=== PATIENT | female | born 1950 | race Caucasian/White ===

== ENCOUNTER → 2016-11-28 | Outpatient (CLI) | payer MEDICARE, OTHER ==
--- NOTE | 2016-11-28 15:52 | REPMRS ---
Patient History The patient states she had a clinical breast exam in August 2016. Patient is postmenopausal. Family history of unknown cancer in father at age 50 or over and unknown cancer in sister at age 50 or over. Took hormonal contraceptives for 9 years. Took unspecified hormones for 10 years. Digital Mammo Screening Bilat: November 28, 2016 - Exam #: [id number] Bilateral CC and MLO view(s) were taken. Technologist: Maria A Payne, Technologist Prior study comparison: November 24, 2015, bilateral digital mammo screening bilat performed at [facility]. November 18, 2014, bilateral digital mammo screening bilat performed at [facility]. September 30, 2013, bilateral bilat screen digital mammo, performed at [facility] ([facility]). FINDINGS: There are scattered fibroglandular densities. There is a pacemaker power plant projecting over the right axilla on the MLO view. There is a moderate amount of residual fibroglandular tissue which is fairly symmetric. There is no interval development of dominant mass, architectural distortion, or clustered microcalcification typical of malignancy. There has been no change in the appearance of the mammogram from the prior studies. ASSESSMENT: BI-RADS/ACR category 1 mammogram. Negative. Recommendation Routine screening mammogram of both breasts in 1 year (for women over age 40). This mammogram was interpreted with the aid of an FDA-approved computer-aided dectection system. Electronically Signed By: Oliver Thacker MD 11/28/16 7046
== END ==
LOC: M RAD 12:04
PROVIDERS: ATTEND Obstetrics & Gynecology
DX: Z12.31 Encounter for screening mammogram for malignant neoplasm of breast (principal); Z78.0 Asymptomatic menopausal state; Z92.0 Personal history of contraception

== ENCOUNTER → 2017-01-23 | Outpatient (CLI) | payer MEDICARE, OTHER ==
[2017-01-23 10:45] LABS: MEAN CORPUSCULAR HEMOGLOBIN 30.6 pg (27.0-33.0); MEAN CORPUSCULAR HGB CONC 34.1 g/dl (32.0-36.5); MEAN CORPUSCULAR VOLUME 89.9 fl (80.0-96.0); RED CELL DISTRIBUTION WIDTH 12.9 % (11.5-14.5); WHITE BLOOD COUNT 5.2 K/mm3 (4.0-10.0)
[2017-01-23 10:45] LABS: INR 2.39
[2017-01-23 11:26] LABS: ALBUMIN 3.9 GM/DL (3.2-5.2); ALBUMIN/GLOBULIN RATIO 1.08 (1.00-1.93); BILIRUBIN,TOTAL 0.4 MG/DL (0.2-1.0); CALCIUM LEVEL 8.8 MG/DL (8.8-10.2); CREATININE FOR GFR 1.19 MG/DL (0.55-1.02); POTASSIUM SERUM 4.7 MEQ/L (3.5-5.1); TOTAL PROTEIN 7.5 GM/DL (6.4-8.2)
--- NOTE | 2017-01-23 11:40 | REP ---
Chest two views HISTORY: Hypertension Comparison: 03/04/2015 The lungs are clear. The cardiac silhouette is enlarged. The pulmonary vasculature is normal in appearance. The bony structure is intact. A cardiac pacemaker and heart valve are present. IMPRESSION: No acute disease. Signed by Jake Bassett MD 01/23/2017 11:31 A
--- NOTE | 2017-01-23 23:25 | ECGEPIP ---
Stationary ECG Study [facility] Test Date: 2017-01-23 Pat Name: KIAN MANZO Department: Room: - Gender: F Sales Team Manager: ELMER : [id number] Requested By: Sarah Bob Order Number: [id number] Reading MD: Jesus Pineda Measurements Intervals [place] Rate: 60 P: 56 AL: 243 QRS: 52 QRSD: 177 T: 35 QT: 464 QTc: 464 Interpretive Statements AV sequential paced rhythm. No prior ECG available for comparison at the time of interpretation. Electronically Signed On 01-23-2017 23:25:30 EDT by Jesus Pineda
== END ==
LOC: M LAB 09:57
PROVIDERS: ATTEND Family Medicine
DX: Z01.818 Encounter for other preprocedural examination (principal); Z79.899 Other long term (current) drug therapy

== ENCOUNTER → 2017-12-16 | Outpatient (CLI) | payer MEDICARE, OTHER | LOC: M RAD 13:58 | DX: Z12.31 Encounter for screening mammogram for malignant neoplasm of breast (principal); Z95.0 Presence of cardiac pacemaker | CPT/HCPCS: 77067 ==

== ENCOUNTER → 2018-07-25 | Outpatient (REF) | payer MEDICARE, OTHER ==
[2018-07-25 17:56] LABS: APPEARANCE, URINE HAZY (CLEAR); BACTERIA, URINE AUTO NEGATIVE (NEGATIVE); BILIRUBIN, URINE AUTO NEGATIVE (NEGATIVE); BLOOD, URINE BLOOD NEGATIVE (NEGATIVE); COLOR, URINE YELLOW (YELLOW); GLUCOSE, URINE (UA) AUTO NEGATIVE (NEGATIVE); KETONE, URINE AUTO NEGATIVE (NEGATIVE); LEUKOCYTE ESTERASE, URINE AUTO NEGATIVE (NEGATIVE); NITRITE, URINE AUTO NEGATIVE (NEGATIVE); PROTEIN, URINE AUTO NEGATIVE (NEGATIVE); RBC, URINE AUTO 13 /HPF (0-3); SQUAMOUS EPITHELIAL CELL UR AU 0 /HPF (0-6); UROBILINOGEN, URINE AUTO 0.2 mg/dL (0.0-2.0); WBC, URINE AUTO 1 /HPF (0-3)
== END ==
LOC: M LAB REF 17:24
PROVIDERS: ATTEND Obstetrics & Gynecology
DX: N39.41 Urge incontinence (principal)

== ENCOUNTER → 2018-07-30 | Outpatient (CLI) | payer MEDICARE, OTHER ==
[~2018-07-30] MED LIST: GASTROGRAFIN SOLUTION 30ML (Q9963) As Ordered ONE; ISOVUE-370 76% 100ML VIAL (Q9967) As Ordered ONE
--- NOTE | 2018-07-30 16:59 | REP ---
CT of the pelvis with IV and bowel contrast: Study includes immediate scanning of the pelvis after IV contrast, followed by delayed scanning. There are no comparisons. There is a hysterectomy. The vaginal cuff demonstrates no evidence of mass and is otherwise unremarkable. There are no adnexal masses. There is no ascites. There is no pelvic adenopathy. The bladder is incompletely distended but otherwise unremarkable. There are occasional diverticula in the sigmoid colon. There is no CT evidence of acute diverticulitis. There is no distension or obstruction of the visualized bowel loops. Impression: Essentially negative CT of the pelvis. There are no pelvic masses. Specifically no masses are identified in the vaginal cuff or in the adnexa. No adenopathy or ascites. Diverticulosis without diverticulitis. Electronically Signed by Jaquan Castellanos MD 07/30/2018 04:50 P
== END ==
LOC: M RAD 14:37
PROVIDERS: ATTEND Obstetrics & Gynecology
DX: D39.8 Neoplasm of uncertain behavior of other specified female genital organs (principal); N95.0 Postmenopausal bleeding; K57.30 Diverticulosis of large intestine without perforation or abscess without bleeding
CPT/HCPCS: 72193; Q9963; Q9967

== ENCOUNTER → 2018-12-29 | Outpatient (CLI) | payer MEDICARE, OTHER ==
--- NOTE | 2018-12-29 09:43 | REPMRS ---
Patient History The patient states she had a clinical breast exam in September 2018.Family history of unknown cancer at age 50 or over in father, unknown cancer at age 50 or over in sister. Brother has lung cancer. Took hormonal contraceptives for 9 years. Took unspecified hormones for 10 years. 3D TOMOSYNTHESIS WAS PERFORMED. The [facility] lifetime risk for breast cancer is 3.0%. Digital Mammo Screening Bilat: December 29, 2018 - Exam #: [id number] Bilateral CC and MLO view(s) were taken. Technologist: Lili Savage, Technologist Prior study comparison: December 16, 2017, bilateral digital mammo screening bilat performed at [facility]. November 28, 2016, bilateral digital mammo screening bilat performed at [facility]. FINDINGS: The breast tissue is heterogeneously dense. This may lower the sensitivity of mammography. There has been no change in the appearance of the mammogram from the prior studies. There is a moderate amount of residual fibroglandular tissue which is fairly symmetric. There is no interval development of dominant mass, areas of architectural distortion, or clustered microcalcification typical of malignancy. Assessment: BI-RADS/ACR category 1 mammogram. Negative Mammogram. Recommendation Routine screening mammogram in 1 year (for women over age 40). This mammogram was interpreted with the aid of an FDA-approved computer-aided dectection system. Electronically Signed By: Jaquan Levine MD 12/29/18 0942
== END ==
LOC: M RAD 08:26
PROVIDERS: ATTEND Obstetrics & Gynecology
DX: Z12.31 Encounter for screening mammogram for malignant neoplasm of breast (principal); Z80.1 Family history of malignant neoplasm of trachea, bronchus and lung

== ENCOUNTER → 2019-07-06 | Outpatient (CLI) | payer MEDICARE, OTHER ==
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
== END ==
LOC: M WUC 11:14
PROVIDERS: ATTEND Physician Assistant
DX: M17.12 Unilateral primary osteoarthritis, left knee (principal)

== ENCOUNTER → 2020-01-08 | Outpatient (CLI) | payer MEDICARE, OTHER ==
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
== END ==
LOC: M WHC 11:01
PROVIDERS: ATTEND Obstetrics & Gynecology
DX: Z12.31 Encounter for screening mammogram for malignant neoplasm of breast (principal); Z80.9 Family history of malignant neoplasm, unspecified

== ENCOUNTER → 2021-03-03 | Outpatient (CLI) | payer MEDICARE, OTHER ==
--- NOTE | 2021-03-03 10:42 | REPMRS ---
Patient History The patient states she had a clinical breast exam in November 2020. Family history of unknown cancer at age 50 or over in father, unknown cancer at age 50 or over in sister. Took hormonal contraceptives for 9 years. Took unspecified hormones for 10 years. Patient states no breast complaints today. Patient has signed MRS History Sheet. Digital Woman Screen Mammo: March 03, 2021 - Exam #: [id number] Bilateral CC and MLO view(s) were taken. Technologist: Tyesha Broderick, Technologist Prior study comparison: January 08, 2020, bilateral digital woman screen mammo performed at [facility]. December 29, 2018, bilateral digital mammo screening bilat, performed at [facility]. December 16, 2017, bilateral digital mammo screening bilat, performed at [facility]. FINDINGS: There are scattered fibroglandular densities. The [employer] volumetric breast density category is:B. There has been no change in the appearance of the mammogram from the prior studies. There is a mild amount of scattered fibroglandular density which is fairly symmetric. There is no interval development of dominant mass, architectural distortion, or grouped microcalcification suggestive of malignancy. 3-D tomosynthesis shows no additional findings. Assessment: BI-RADS/ACR category 1 mammogram. Negative Mammogram. Recommendation Routine screening mammogram of both breasts in 1 year (for women over age 40). This patient's [facility] Lifetime Breast Cancer Risk is estimated at 3.7 %. This mammogram was interpreted with the aid of an FDA-approved computer-aided dectection system. Electronically Signed By: Oliver Thacker MD 03/03/21 1669
== END ==
LOC: M WHC 09:22
PROVIDERS: ATTEND Obstetrics & Gynecology
DX: Z12.31 Encounter for screening mammogram for malignant neoplasm of breast (principal); Z80.8 Family history of malignant neoplasm of other organs or systems

== ENCOUNTER → 2021-10-26 | Outpatient (CLI) | payer MEDICARE, OTHER ==
[2021-10-26 13:38] LABS: HEMATOCRIT 37.4 % (36.0-47.0); HEMOGLOBIN 12.1 g/dl (12.0-15.5); MEAN CORPUSCULAR HEMOGLOBIN 29.8 pg (27.0-33.0); MEAN CORPUSCULAR HGB CONC 32.4 g/dl (32.0-36.5); MEAN CORPUSCULAR VOLUME 92.1 fl (80.0-96.0); PLATELET COUNT, AUTOMATED 215 10^3/uL (150-450); RED BLOOD COUNT 4.06 10^6/uL (4.00-5.40); WHITE BLOOD COUNT 8.2 10^3/uL (4.0-10.0)
[2021-10-26 13:51] LABS: INR 2.24; PROTHROMBIN TIME 25.2 SECONDS (12.7-14.5)
[2021-10-26 14:15] LABS: ALBUMIN 3.9 GM/DL (3.2-5.2); BILIRUBIN,TOTAL 0.4 MG/DL (0.2-1.0); CALCIUM LEVEL 10.1 MG/DL (8.8-10.2); CHOLESTEROL RISK RATIO 2.5 (<5); CREATININE FOR GFR 1.27 MG/DL (0.55-1.30); GLOMERULAR FILTRATION RATE 43.9 (>39); POTASSIUM SERUM 4.4 MEQ/L (3.5-5.1); THYROID STIMULATING HORMONE 1.48 uIU/ML (0.358-3.740); TOTAL PROTEIN 8.1 GM/DL (6.4-8.2)
== END ==
LOC: M RAD 12:23
PROVIDERS: ATTEND Family Medicine
DX: R91.8 Other nonspecific abnormal finding of lung field (principal); I10 Essential (primary) hypertension; Z95.0 Presence of cardiac pacemaker

== ENCOUNTER → 2021-11-02 | Outpatient (CLI) | payer MEDICARE, OTHER | LOC: M RAD 11:32 | PROVIDERS: ATTEND Family Medicine | DX: R91.8 Other nonspecific abnormal finding of lung field (principal) ==

== ENCOUNTER → 2021-12-06 | Outpatient (CLI) | payer MEDICARE, OTHER ==
[2021-12-06 18:00] LABS: HEMATOCRIT 37.2 % (36.0-47.0); MEAN CORPUSCULAR HEMOGLOBIN 30.6 pg (27.0-33.0); MEAN CORPUSCULAR HGB CONC 32.3 g/dl (32.0-36.5); MEAN CORPUSCULAR VOLUME 94.9 fl (80.0-96.0); PLATELET COUNT, AUTOMATED 266 10^3/uL (150-450); RED BLOOD COUNT 3.92 10^6/uL (4.00-5.40); WHITE BLOOD COUNT 9.6 10^3/uL (4.0-10.0)
[2021-12-06 19:46] LABS: BILIRUBIN,TOTAL 0.4 MG/DL (0.2-1.0); CALCIUM LEVEL 9.7 MG/DL (8.8-10.2); CREATININE FOR GFR 1.55 MG/DL (0.55-1.30); GLOMERULAR FILTRATION RATE 34.9 (>39); TOTAL PROTEIN 7.4 GM/DL (6.4-8.2)
== END ==
LOC: M PLALAB 15:21
PROVIDERS: ATTEND Internal Medicine Cardiovascular Disease
DX: I44.2 Atrioventricular block, complete (principal)

== ENCOUNTER → 2021-12-06 | Outpatient (CLI) | payer MEDICARE, OTHER | LOC: M PLAIMG 09:56 | PROVIDERS: ATTEND Internal Medicine Pulmonary Disease | DX: R91.8 Other nonspecific abnormal finding of lung field (principal); I44.2 Atrioventricular block, complete ==

== ENCOUNTER → 2021-12-14 | Outpatient (CLI) | payer MEDICARE, OTHER | LOC: M LABSMTC 09:09 | PROVIDERS: ATTEND Internal Medicine Cardiovascular Disease | DX: Z01.818 Encounter for other preprocedural examination (principal); Z11.52 Encounter for screening for COVID-19 ==

== ENCOUNTER → 2022-01-22 | Outpatient (CLI) | payer MEDICARE, OTHER ==
[~2022-01-22] MED LIST changes: +AMLO1TAB24 PO; +ASPI81TA26 PO; +ATOR1TAB21 PO; +B-12100010 PO; +CALC600T60 PO; +COLA100C5 PO; +DOFE125C PO; +ENOX80IN3 SQ; -GASTROGRAFIN SOLUTION 30ML (Q9963) As Ordered ONE; -ISOVUE-370 76% 100ML VIAL (Q9967) As Ordered ONE; +LISI40TA4 PO; +MAGN400T2 PO; +METO1TAB7 PO; +PYRI25TA2 PO; +SPIR-10 PO; +VITA250T26 PO; +VITMTA PO; +WARF-23 PO
== END ==
LOC: M PLARAD 10:01
PROVIDERS: ATTEND Internal Medicine Pulmonary Disease
DX: R91.8 Other nonspecific abnormal finding of lung field (principal)
CPT/HCPCS: 78815; A9552

== ENCOUNTER 2022-02-12 11:44 | Inpatient (IN) | payer MEDICARE, OTHER ==
[~2022-02-12] VITALS: Ht 154.9 cm; Wt 77.2 kg
[2022-02-12] MEDS ORDERED: ACETAMINOPHEN TAB 650MG DOSE (2X325MG) PO PRN (12:50)
[2022-02-12] MEDS ORDERED: MOM 30ML SUSPENSION UDC PO PRN (12:50)
[2022-02-12 16:13] VITALS: BP 140/61
[2022-02-12] MEDS ORDERED: HEPARIN SOD (PORCINE) 5000UNITS/ML 1ML VIAL/SYRINGE IV PRN (16:15)
[2022-02-12] MEDS ORDERED: HEPARIN SOD (PORCINE) 5000UNITS/ML 1ML VIAL/SYRINGE IV ONE (16:15)
[2022-02-12 16:34] LABS: HEMATOCRIT 35.3 % (36.0-47.0); HEMOGLOBIN 11.5 g/dl (12.0-15.5); MEAN CORPUSCULAR HEMOGLOBIN 30.1 pg (27.0-33.0); MEAN CORPUSCULAR HGB CONC 32.6 g/dl (32.0-36.5); MEAN CORPUSCULAR VOLUME 92.4 fl (80.0-96.0); PLATELET COUNT, AUTOMATED 209 10^3/uL (150-450); RED BLOOD COUNT 3.82 10^6/uL (4.00-5.40); WHITE BLOOD COUNT 7.5 10^3/uL (4.0-10.0)
[2022-02-12 16:50] LABS: INR 1.11; PROTHROMBIN TIME 14.7 SECONDS (12.7-14.5)
[2022-02-12 17:07] LABS: ALBUMIN 4.3 GM/DL (3.2-5.2); BILIRUBIN,TOTAL 0.5 MG/DL (0.2-1.0); CALCIUM LEVEL 9.4 MG/DL (8.8-10.2); CREATININE FOR GFR 1.49 MG/DL (0.55-1.30); GLOMERULAR FILTRATION RATE 36.5 (>39); POTASSIUM SERUM 4.5 MEQ/L (3.5-5.1); TOTAL PROTEIN 7.6 GM/DL (6.4-8.2)
[2022-02-12] MEDS ORDERED: ATOR1TAB21 PO (17:08)
[2022-02-12] MEDS ORDERED: ASPI81TA26 PO (17:08)
[2022-02-12] MEDS ORDERED: VITMTA PO (17:08)
[2022-02-12] MEDS ORDERED: MAGN400T2 PO (17:08)
[2022-02-12] MEDS ORDERED: AMLO1TAB24 PO ×2 (17:08)
[2022-02-12] MEDS ORDERED: METO1TAB7 PO (17:08)
[2022-02-12] MEDS ORDERED: WARF-23 PO (17:08)
[2022-02-12] MEDS ORDERED: ENOX80IN3 SQ (17:08)
[2022-02-12] MEDS ORDERED: CALC600T60 PO (17:08)
[2022-02-12] MEDS ORDERED: PYRI25TA2 PO (17:08)
[2022-02-12] MEDS ORDERED: DOFE125C PO (17:08)
[2022-02-12] MEDS ORDERED: LISI40TA4 PO (17:08)
[2022-02-12] MEDS ORDERED: VITA250T26 PO (17:08)
[2022-02-12] MEDS ORDERED: B-12100010 PO (17:08)
[2022-02-12] MEDS ORDERED: SPIR-10 PO (17:08)
[2022-02-12] MEDS ORDERED: HOME MED LIST COMPLETE! XX SCH (17:10)
[2022-02-12] MEDS: HEPARIN DRIP 25,000 UNITS in IV 1 EA IV SCH (17:56)
[2022-02-12 19:36] VITALS: BP 132/63
[2022-02-12] MEDS: DOCUSATE SODIUM 100MG CAPSULE PO SCH (20:10)
[2022-02-12] MEDS: ATORVASTATIN 20 MG TAB PO SCH (20:10)
[2022-02-12] MEDS: DOFETILIDE 125 MCG PO SCH (20:11)
[2022-02-12] MEDS: METOPROLOL SUCC (TopROL XL) 50MG **XL** TAB PO SCH (20:27)
[2022-02-12] MEDS ORDERED: METOPROLOL SUCC (TopROL XL) 50MG **XL** TAB PO ONE (20:40)
[2022-02-12 22:53] LABS: INR 1.12; PROTHROMBIN TIME 14.8 SECONDS (12.7-14.5)
[2022-02-12 23:58] VITALS: BP 113/54
[2022-02-13 03:52] VITALS: BP 114/89
[2022-02-13 05:46] LABS: ALBUMIN 3.8 GM/DL (3.2-5.2); BILIRUBIN,TOTAL 0.5 MG/DL (0.2-1.0); CREATININE FOR GFR 1.32 MG/DL (0.55-1.30); POTASSIUM SERUM 3.9 MEQ/L (3.5-5.1)
[2022-02-13 07:50] VITALS: BP 168/80
[2022-02-13 08:00] VITALS: BP 146/76
[2022-02-13] MEDS ORDERED: LIDOCAINE 1% MDV 20ML VIAL As Ordered ONE (08:04)
[2022-02-13 08:14] LABS: HEMATOCRIT 33.4 % (36.0-47.0); HEMOGLOBIN 10.6 g/dl (12.0-15.5); MEAN CORPUSCULAR HEMOGLOBIN 29.9 pg (27.0-33.0); MEAN CORPUSCULAR HGB CONC 31.7 g/dl (32.0-36.5); MEAN CORPUSCULAR VOLUME 94.4 fl (80.0-96.0); PLATELET COUNT, AUTOMATED 178 10^3/uL (150-450); RED BLOOD COUNT 3.54 10^6/uL (4.00-5.40); WHITE BLOOD COUNT 5.5 10^3/uL (4.0-10.0)
[2022-02-13] MEDS: SPIRONOLACTONE 12.5MG PER 1/2 TABLET PO SCH (08:23)
[2022-02-13] MEDS: DOCUSATE SODIUM 100MG CAPSULE PO SCH ×2 (08:23→20:45)
[2022-02-13] MEDS: amLODIPine 5 MG TAB PO SCH (08:24)
[2022-02-13] MEDS: DOFETILIDE 125 MCG PO SCH ×2 (08:24→20:46)
[2022-02-13] MEDS: MAGNESIUM OXIDE 400MG TAB (MAG-OX) PO SCH ×2 (08:24→20:46)
[2022-02-13] MEDS ORDERED: METOPROLOL SUCC (TopROL XL) 50MG **XL** TAB PO SCH (09:00)
[2022-02-13] MEDS: lisinopriL 40MG TAB PO SCH (10:19)
[2022-02-13 13:00] VITALS: BP 138/80
[2022-02-13 15:51] LABS: HEMATOCRIT 35.5 % (36.0-47.0); HEMOGLOBIN 11.5 g/dl (12.0-15.5); MEAN CORPUSCULAR HGB CONC 32.4 g/dl (32.0-36.5); MEAN CORPUSCULAR VOLUME 92.7 fl (80.0-96.0); PLATELET COUNT, AUTOMATED 185 10^3/uL (150-450); RED BLOOD COUNT 3.83 10^6/uL (4.00-5.40); WHITE BLOOD COUNT 7.1 10^3/uL (4.0-10.0)
[2022-02-13 16:00] VITALS: BP 125/74
[2022-02-13 16:10] LABS: INR 0.98; PARTIAL THROMBOPLASTIN TIME 37.7 SECONDS (25.9-37.0); PROTHROMBIN TIME 13.4 SECONDS (12.7-14.5)
[2022-02-13] MEDS ORDERED: WARFARIN SOD 7.5MG TAB PO ONE (17:00)
[2022-02-13] MEDS: HEPARIN DRIP 25,000 UNITS in IV 1 EA IV SCH (17:38)
[2022-02-13 20:00] VITALS: BP 118/56
[2022-02-13] MEDS: ATORVASTATIN 20 MG TAB PO SCH (20:46)
[2022-02-13] MEDS: METOPROLOL SUCC (TopROL XL) 50MG **XL** TAB PO SCH (20:46)
[2022-02-14] VITALS: BP 125/60
[2022-02-14 00:34] LABS: INR 0.99; PROTHROMBIN TIME 13.5 SECONDS (12.7-14.5)
[2022-02-14 00:35] LABS: PARTIAL THROMBOPLASTIN TIME 63.9 SECONDS (25.9-37.0)
[2022-02-14 04:00] VITALS: BP 120/60
[2022-02-14 06:38] LABS: HEMATOCRIT 33.2 % (36.0-47.0); HEMOGLOBIN 10.8 g/dl (12.0-15.5); MEAN CORPUSCULAR HEMOGLOBIN 30.2 pg (27.0-33.0); MEAN CORPUSCULAR HGB CONC 32.5 g/dl (32.0-36.5); MEAN CORPUSCULAR VOLUME 92.7 fl (80.0-96.0); PLATELET COUNT, AUTOMATED 172 10^3/uL (150-450); RED BLOOD COUNT 3.58 10^6/uL (4.00-5.40); WHITE BLOOD COUNT 6.7 10^3/uL (4.0-10.0)
[2022-02-14 06:49] LABS: INR 1.01; PROTHROMBIN TIME 13.7 SECONDS (12.7-14.5)
[2022-02-14 06:51] LABS: PARTIAL THROMBOPLASTIN TIME 85.9 SECONDS (25.9-37.0)
[2022-02-14 08:00] VITALS: BP 112/55
[2022-02-14] MEDS: amLODIPine 5 MG TAB PO SCH (08:15)
[2022-02-14] MEDS: SPIRONOLACTONE 12.5MG PER 1/2 TABLET PO SCH (08:15)
[2022-02-14] MEDS: DOCUSATE SODIUM 100MG CAPSULE PO SCH ×2 (08:15→20:27)
[2022-02-14] MEDS: MAGNESIUM OXIDE 400MG TAB (MAG-OX) PO SCH ×2 (08:15→20:26)
[2022-02-14] MEDS: lisinopriL 40MG TAB PO SCH (08:15)
[2022-02-14 08:24] LABS: ALBUMIN 3.7 GM/DL (3.2-5.2); BILIRUBIN,TOTAL 0.4 MG/DL (0.2-1.0); CALCIUM LEVEL 9.3 MG/DL (8.8-10.2); CREATININE FOR GFR 1.24 MG/DL (0.55-1.30); GLOMERULAR FILTRATION RATE 45.1 (>39); TOTAL PROTEIN 6.9 GM/DL (6.4-8.2)
[2022-02-14] MEDS: DOFETILIDE 125 MCG PO SCH ×2 (08:34→21:12)
[2022-02-14 12:00] VITALS: BP 122/59
[2022-02-14 16:00] VITALS: BP 128/60
[2022-02-14] MEDS ORDERED: WARFARIN SOD 7.5MG TAB PO ONE (17:00)
[2022-02-14 19:39] VITALS: BP 122/60
[2022-02-14] MEDS: METOPROLOL SUCC (TopROL XL) 50MG **XL** TAB PO SCH (20:28)
[2022-02-14] MEDS: ATORVASTATIN 20 MG TAB PO SCH (20:28)
[2022-02-14] MEDS: HEPARIN DRIP 25,000 UNITS in IV 1 EA IV SCH (21:16)
[2022-02-15] VITALS (7 sets, daily range): BP systolic 97–138; BP diastolic 52–63
[2022-02-15 06:10] LABS: HEMATOCRIT 33.4 % (36.0-47.0); HEMOGLOBIN 10.8 g/dl (12.0-15.5); MEAN CORPUSCULAR HEMOGLOBIN 29.8 pg (27.0-33.0); MEAN CORPUSCULAR HGB CONC 32.3 g/dl (32.0-36.5); PLATELET COUNT, AUTOMATED 180 10^3/uL (150-450); RED BLOOD COUNT 3.63 10^6/uL (4.00-5.40); WHITE BLOOD COUNT 6.8 10^3/uL (4.0-10.0)
[2022-02-15 06:30] LABS: INR 1.17; PROTHROMBIN TIME 15.3 SECONDS (12.7-14.5)
[2022-02-15 06:32] LABS: PARTIAL THROMBOPLASTIN TIME 109.7 SECONDS (25.9-37.0)
[2022-02-15 06:40] LABS: ALBUMIN 3.6 GM/DL (3.2-5.2); BILIRUBIN,TOTAL 0.4 MG/DL (0.2-1.0); CALCIUM LEVEL 9.2 MG/DL (8.8-10.2); CREATININE FOR GFR 1.23 MG/DL (0.55-1.30); GLOMERULAR FILTRATION RATE 45.6 (>39); TOTAL PROTEIN 7.4 GM/DL (6.4-8.2)
[2022-02-15] MEDS: DOCUSATE SODIUM 100MG CAPSULE PO SCH ×2 (09:02→20:21)
[2022-02-15] MEDS: MAGNESIUM OXIDE 400MG TAB (MAG-OX) PO SCH ×2 (09:02→20:22)
[2022-02-15] MEDS: DOFETILIDE 125 MCG PO SCH ×2 (09:03→20:22)
[2022-02-15] MEDS: SPIRONOLACTONE 12.5MG PER 1/2 TABLET PO SCH (10:50)
[2022-02-15] MEDS: lisinopriL 40MG TAB PO SCH (10:55)
[2022-02-15] MEDS: amLODIPine 5 MG TAB PO SCH (11:02)
[2022-02-15] MEDS ORDERED: WARFARIN SOD 5MG TAB PO SCH (17:00)
[2022-02-15] MEDS: METOPROLOL SUCC (TopROL XL) 50MG **XL** TAB PO SCH (20:22)
[2022-02-15] MEDS: ATORVASTATIN 20 MG TAB PO SCH (20:22)
[2022-02-16 00:15] VITALS: BP 106/59
[2022-02-16] MEDS: HEPARIN DRIP 25,000 UNITS in IV 1 EA IV SCH (01:36)
[2022-02-16 04:00] VITALS: BP 139/63
[2022-02-16 07:14] LABS: HEMATOCRIT 33.3 % (36.0-47.0); HEMOGLOBIN 10.9 g/dl (12.0-15.5); MEAN CORPUSCULAR HEMOGLOBIN 30.1 pg (27.0-33.0); MEAN CORPUSCULAR HGB CONC 32.7 g/dl (32.0-36.5); PLATELET COUNT, AUTOMATED 187 10^3/uL (150-450); RED BLOOD COUNT 3.62 10^6/uL (4.00-5.40); WHITE BLOOD COUNT 6.4 10^3/uL (4.0-10.0)
[2022-02-16 07:25] LABS: INR 1.34
[2022-02-16 07:43] LABS: PARTIAL THROMBOPLASTIN TIME 126.4 SECONDS (25.9-37.0)
[2022-02-16 07:47] LABS: ALBUMIN 3.7 GM/DL (3.2-5.2); BILIRUBIN,TOTAL 0.4 MG/DL (0.2-1.0); CREATININE FOR GFR 1.1 MG/DL (0.55-1.30); GLOMERULAR FILTRATION RATE 51.8 (>39); POTASSIUM SERUM 4.2 MEQ/L (3.5-5.1)
[2022-02-16 08:00] VITALS: BP 115/59
[2022-02-16] MEDS: DOCUSATE SODIUM 100MG CAPSULE PO SCH ×2 (09:49→20:34)
[2022-02-16] MEDS: MAGNESIUM OXIDE 400MG TAB (MAG-OX) PO SCH ×2 (09:50→20:34)
[2022-02-16] MEDS: SPIRONOLACTONE 12.5MG PER 1/2 TABLET PO SCH (09:50)
[2022-02-16] MEDS: lisinopriL 40MG TAB PO SCH (09:50)
[2022-02-16] MEDS: amLODIPine 5 MG TAB PO SCH (09:55)
[2022-02-16] MEDS: DOFETILIDE 125 MCG PO SCH ×2 (09:56→20:34)
[2022-02-16 12:00] VITALS: BP 132/60
[2022-02-16 15:27] VITALS: BP 133/70
[2022-02-16] MEDS ORDERED: WARFARIN SOD 7.5MG TAB PO ONE (17:00)
[2022-02-16 20:00] VITALS: BP 122/57
[2022-02-16] MEDS: METOPROLOL SUCC (TopROL XL) 50MG **XL** TAB PO SCH (20:33)
[2022-02-16] MEDS: ATORVASTATIN 20 MG TAB PO SCH (20:34)
[2022-02-16] MEDS: LIDOCAINE 5% (LIDODERM) PATCH TD SCH (22:04)
[2022-02-17] VITALS: BP 100/48
[2022-02-17 03:23] LABS: HEMATOCRIT 33.1 % (36.0-47.0); HEMOGLOBIN 10.9 g/dl (12.0-15.5); MEAN CORPUSCULAR HEMOGLOBIN 29.9 pg (27.0-33.0); MEAN CORPUSCULAR HGB CONC 32.9 g/dl (32.0-36.5); MEAN CORPUSCULAR VOLUME 90.9 fl (80.0-96.0); PLATELET COUNT, AUTOMATED 164 10^3/uL (150-450); RED BLOOD COUNT 3.64 10^6/uL (4.00-5.40); WHITE BLOOD COUNT 8.4 10^3/uL (4.0-10.0)
[2022-02-17 03:57] LABS: INR 1.52; PROTHROMBIN TIME 18.7 SECONDS (12.7-14.5)
[2022-02-17 03:59] LABS: PARTIAL THROMBOPLASTIN TIME 76.2 SECONDS (25.9-37.0)
[2022-02-17 04:00] VITALS: BP 106/57
[2022-02-17 04:10] LABS: ALBUMIN 3.4 GM/DL (3.2-5.2); BILIRUBIN,TOTAL 0.4 MG/DL (0.2-1.0); CALCIUM LEVEL 9.1 MG/DL (8.8-10.2); CREATININE FOR GFR 1.59 MG/DL (0.55-1.30); GLOMERULAR FILTRATION RATE 33.9 (>39); POTASSIUM SERUM 3.8 MEQ/L (3.5-5.1)
[2022-02-17 08:00] VITALS: BP 107/53
[2022-02-17] MEDS: DOCUSATE SODIUM 100MG CAPSULE PO SCH ×2 (08:45→20:06)
[2022-02-17] MEDS: MAGNESIUM OXIDE 400MG TAB (MAG-OX) PO SCH ×2 (08:45→20:07)
[2022-02-17] MEDS: amLODIPine 5 MG TAB PO SCH (08:46)
[2022-02-17] MEDS: DOFETILIDE 125 MCG PO SCH ×2 (08:50→20:07)
[2022-02-17] MEDS: **NOTE PATIENT COMMENT** MISC XX SCH (08:51)
[2022-02-17] MEDS: NS 1,000 ML IV SCH ×2 (09:33→20:45)
[2022-02-17 12:00] VITALS: BP 102/57
[2022-02-17 16:00] VITALS: BP 103/53
[2022-02-17] MEDS ORDERED: WARFARIN SOD 7.5MG TAB PO ONE (17:00)
[2022-02-17] MEDS: HEPARIN DRIP 25,000 UNITS in IV 1 EA IV SCH (19:13)
[2022-02-17 20:00] VITALS: BP 103/53
[2022-02-17] MEDS: METOPROLOL SUCC (TopROL XL) 50MG **XL** TAB PO SCH (20:00)
[2022-02-17] MEDS: LIDOCAINE 5% (LIDODERM) PATCH TD SCH (20:06)
[2022-02-17] MEDS: ATORVASTATIN 20 MG TAB PO SCH (20:06)
[2022-02-18] VITALS: BP 103/52
[2022-02-18 04:00] VITALS: BP 102/51
[2022-02-18 06:06] LABS: HEMATOCRIT 31.2 % (36.0-47.0); MEAN CORPUSCULAR HEMOGLOBIN 29.6 pg (27.0-33.0); MEAN CORPUSCULAR HGB CONC 32.1 g/dl (32.0-36.5); MEAN CORPUSCULAR VOLUME 92.3 fl (80.0-96.0); PLATELET COUNT, AUTOMATED 160 10^3/uL (150-450); RED BLOOD COUNT 3.38 10^6/uL (4.00-5.40); WHITE BLOOD COUNT 5.4 10^3/uL (4.0-10.0)
[2022-02-18 06:50] LABS: INR 1.8; PROTHROMBIN TIME 21.3 SECONDS (12.7-14.5)
[2022-02-18 06:58] LABS: ALBUMIN 3.3 GM/DL (3.2-5.2); BILIRUBIN,TOTAL 0.3 MG/DL (0.2-1.0); CALCIUM LEVEL 8.4 MG/DL (8.8-10.2); CREATININE FOR GFR 1.16 MG/DL (0.55-1.30); GLOMERULAR FILTRATION RATE 48.8 (>39); POTASSIUM SERUM 4.1 MEQ/L (3.5-5.1); TOTAL PROTEIN 6.2 GM/DL (6.4-8.2)
[2022-02-18 07:49] LABS: PARTIAL THROMBOPLASTIN TIME 175.6 SECONDS (25.9-37.0)
[2022-02-18 07:53] VITALS: BP 110/56
[2022-02-18] MEDS: MAGNESIUM OXIDE 400MG TAB (MAG-OX) PO SCH ×2 (08:22→20:39)
[2022-02-18] MEDS: amLODIPine 5 MG TAB PO SCH (08:22)
[2022-02-18] MEDS: DOCUSATE SODIUM 100MG CAPSULE PO SCH ×2 (08:22→20:38)
[2022-02-18] MEDS: DOFETILIDE 125 MCG PO SCH ×2 (08:23→20:39)
[2022-02-18] MEDS: **NOTE PATIENT COMMENT** MISC XX SCH (08:24)
[2022-02-18] MEDS ORDERED: COLA100C5 PO (11:25)
[2022-02-18] MEDS ORDERED: METO1TAB7 PO (11:25)
[2022-02-18 12:00] VITALS: BP 124/59
[2022-02-18 16:00] VITALS: BP 127/62
[2022-02-18] MEDS ORDERED: WARFARIN SOD 5MG TAB PO ONE (17:00)
[2022-02-18 20:00] VITALS: BP 125/63
[2022-02-18] MEDS: ATORVASTATIN 20 MG TAB PO SCH (20:38)
[2022-02-18] MEDS: METOPROLOL SUCC (TopROL XL) 50MG **XL** TAB PO SCH (20:39)
[2022-02-18] MEDS: LIDOCAINE 5% (LIDODERM) PATCH TD SCH (20:39)
[2022-02-19] VITALS: BP 112/51
[2022-02-19 04:00] VITALS: BP 97/55
[2022-02-19 07:03] LABS: HEMATOCRIT 30.5 % (36.0-47.0); HEMOGLOBIN 9.9 g/dl (12.0-15.5); MEAN CORPUSCULAR HEMOGLOBIN 29.6 pg (27.0-33.0); MEAN CORPUSCULAR HGB CONC 32.5 g/dl (32.0-36.5); MEAN CORPUSCULAR VOLUME 91.3 fl (80.0-96.0); PLATELET COUNT, AUTOMATED 173 10^3/uL (150-450); RED BLOOD COUNT 3.34 10^6/uL (4.00-5.40); WHITE BLOOD COUNT 7.6 10^3/uL (4.0-10.0)
[2022-02-19 07:22] LABS: INR 1.9; PROTHROMBIN TIME 22.2 SECONDS (12.7-14.5)
[2022-02-19 07:24] LABS: PARTIAL THROMBOPLASTIN TIME 70.3 SECONDS (25.9-37.0)
[2022-02-19 07:53] LABS: CALCIUM LEVEL 8.9 MG/DL (8.8-10.2); CREATININE FOR GFR 1.17 MG/DL (0.55-1.30); GLOMERULAR FILTRATION RATE 48.3 (>39); POTASSIUM SERUM 4.6 MEQ/L (3.5-5.1)
[2022-02-19 07:54] LABS: ALBUMIN 3.5 GM/DL (3.2-5.2); BILIRUBIN,TOTAL 0.4 MG/DL (0.2-1.0); TOTAL PROTEIN 6.7 GM/DL (6.4-8.2)
[2022-02-19 07:56] VITALS: BP_SYST 100; BP_SYST 104; BP_DIAS 60; BP_DIAS 73
[2022-02-19] MEDS: MAGNESIUM OXIDE 400MG TAB (MAG-OX) PO SCH (08:01)
[2022-02-19] MEDS: DOCUSATE SODIUM 100MG CAPSULE PO SCH (08:01)
[2022-02-19 08:02] VITALS: BP 104/60
[2022-02-19] MEDS: **NOTE PATIENT COMMENT** MISC XX SCH (08:02)
[2022-02-19] MEDS: amLODIPine 5 MG TAB PO SCH (08:02)
[2022-02-19] MEDS: DOFETILIDE 125 MCG PO SCH (08:02)
[2022-02-19] MEDS ORDERED: ENOX80IN3 SQ (08:32)
== END 2022-02-19 10:24 | disposition home or self-care (01) | DRG 181 ==
LOC: M PCU 15:14
PROVIDERS: ADMIT Internal Medicine Pulmonary Disease; ATTEND Internal Medicine
PROC: BB24ZZZ Computerized Tomography (CT Scan) of Bilateral Lungs (ICD-10-PCS; 2022-02-13)
PROC: 0BBG3ZX Excision of Left Upper Lung Lobe, Percutaneous Approach, Diagnostic (ICD-10-PCS; principal; 2022-02-13 09:00)
DX: C34.12 Malignant neoplasm of upper lobe, left bronchus or lung (principal); J95.811 Postprocedural pneumothorax; I50.32 Chronic diastolic (congestive) heart failure; N17.9 Acute kidney failure, unspecified; I13.0 Hypertensive heart and chronic kidney disease with heart failure and stage 1 through stage 4 chronic kidney disease, or unspecified chronic kidney disease; E87.1 Hypo-osmolality and hyponatremia; I49.5 Sick sinus syndrome; E78.5 Hyperlipidemia, unspecified; I48.0 Paroxysmal atrial fibrillation; E55.9 Vitamin D deficiency, unspecified; R31.9 Hematuria, unspecified; N18.9 Chronic kidney disease, unspecified; Z79.01 Long term (current) use of anticoagulants; Z95.2 Presence of prosthetic heart valve; Z95.1 Presence of aortocoronary bypass graft; Z79.899 Other long term (current) drug therapy; Z51.81 Encounter for therapeutic drug level monitoring

== ENCOUNTER → 2022-03-02 | Outpatient (CLI) | payer MEDICARE, OTHER | LOC: M ONCR 08:48 | PROVIDERS: ATTEND General Practice | DX: C34.12 Malignant neoplasm of upper lobe, left bronchus or lung (principal); E78.5 Hyperlipidemia, unspecified; I12.9 Hypertensive chronic kidney disease with stage 1 through stage 4 chronic kidney disease, or unspecified chronic kidney disease; I48.91 Unspecified atrial fibrillation; Z79.01 Long term (current) use of anticoagulants; Z79.82 Long term (current) use of aspirin; Z79.899 Other long term (current) drug therapy; Z80.1 Family history of malignant neoplasm of trachea, bronchus and lung; Z80.6 Family history of leukemia; Z87.891 Personal history of nicotine dependence; Z95.2 Presence of prosthetic heart valve; Z95.0 Presence of cardiac pacemaker ==

== ENCOUNTER 2022-03-08 09:20 | Outpatient (RCR) | payer MEDICARE, OTHER ==
[~2022-03-08 09:20] MED LIST changes: +PROA1AER2 INH
[2022-03-22] MEDS ORDERED: PROC10TA5 PO (16:09)
[2022-03-22] MEDS ORDERED: ONDA-84 PO (16:09)
== END 2022-03-26 ==
LOC: M ONCR 09:20
PROVIDERS: ATTEND General Practice
DX: C34.12 Malignant neoplasm of upper lobe, left bronchus or lung (principal)

== ENCOUNTER → 2022-03-27 | Outpatient (CLI) | payer MEDICARE, OTHER ==
[~2022-03-27] MED LIST changes: +LIDO1CRE EX; +LIDO1CRE42 TOP; +ONDA-84 PO; +PROC10TA5 PO; +WARF-22 PO
== END ==
LOC: M WHC 07:13
PROVIDERS: ATTEND Obstetrics & Gynecology
DX: Z12.31 Encounter for screening mammogram for malignant neoplasm of breast (principal)

== ENCOUNTER → 2022-04-01 | Outpatient (CLI) | payer MEDICARE, OTHER ==
[~2022-04-01] MED LIST changes: -LIDO1CRE EX; -LIDO1CRE42 TOP; -WARF-22 PO
== END ==
LOC: M LABSMTC 09:54
PROVIDERS: ATTEND Anesthesiology
DX: Z01.812 Encounter for preprocedural laboratory examination (principal); Z20.822 Contact with and (suspected) exposure to COVID-19

== ENCOUNTER → 2022-04-04 | Outpatient (CLI) | payer MEDICARE, OTHER ==
[~2022-04-04] MED LIST changes: +LIDO1CRE EX; +LIDO1CRE42 TOP; +LIDOCAINE 1% MDV 20ML VIAL As Ordered ONE; +MIDAZOLAM INJ 2MG/2ML VIAL (J2250 PER 1MG) As Ordered ONE; +NS 1,000 ML IV SCH; +ceFAZolin 2 GM/D5W 50 ML IV BAG (J0690 PER 500MG) As Ordered ONE; +ceFAZolin SOD 2 GM in IV 1 EA IV ONE; +diphenhydrAMINE 50MG/ML VIAL As Ordered ONE; +fentaNYL 100 MCG/2 ML INJECTION As Ordered ONE
[2022-04-04 16:20] VITALS: BP 126/60
== END ==
LOC: M IRPRO 10:22
PROVIDERS: ATTEND Internal Medicine Hematology & Oncology
DX: C34.12 Malignant neoplasm of upper lobe, left bronchus or lung (principal); Z79.01 Long term (current) use of anticoagulants; Z79.82 Long term (current) use of aspirin; Z79.899 Other long term (current) drug therapy
CPT/HCPCS: 36561; 99152; 99153; C1769; C1788; C1894; J0690; J1200; J1642; J1644; J2250; J3010

== ENCOUNTER → 2022-04-24 | Outpatient (POV) | payer MEDICARE, OTHER ==
[~2022-04-24] VITALS: Ht 154.9 cm; Wt 75.9 kg
[~2022-04-24] MED LIST changes: -LIDOCAINE 1% MDV 20ML VIAL As Ordered ONE; -MIDAZOLAM INJ 2MG/2ML VIAL (J2250 PER 1MG) As Ordered ONE; -NS 1,000 ML IV SCH; -ceFAZolin 2 GM/D5W 50 ML IV BAG (J0690 PER 500MG) As Ordered ONE; -ceFAZolin SOD 2 GM in IV 1 EA IV ONE; -diphenhydrAMINE 50MG/ML VIAL As Ordered ONE; -fentaNYL 100 MCG/2 ML INJECTION As Ordered ONE
[2022-04-24 13:25] VITALS: BP 122/57
== END ==
LOC: M IRPOV 13:18
PROVIDERS: ATTEND Radiology Diagnostic Radiology
DX: Z45.2 Encounter for adjustment and management of vascular access device (principal)

== ENCOUNTER 2022-04-25 10:08 | Outpatient (RCR) | payer MEDICARE, OTHER ==
[2022-05-14] MEDS ORDERED: WARF-22 PO (11:15)
[2022-07-04] MEDS ORDERED: [UNRECOGNIZED DRUG - CODE] PO (14:53)
== END 2022-04-25 23:59 | disposition home or self-care (01) ==
LOC: M ONCR 10:08
PROVIDERS: ATTEND General Practice
DX: C34.12 Malignant neoplasm of upper lobe, left bronchus or lung (principal)

== ENCOUNTER 2022-05-23 09:46 | Outpatient (RCR) | payer MEDICARE, OTHER ==
[~2022-05-23 09:46] MED LIST changes: +WARF-22 PO
[2022-07-04] MEDS ORDERED: [UNRECOGNIZED DRUG - CODE] PO (14:53)
== END 2022-05-26 ==
LOC: M ONCR 09:46
PROVIDERS: ATTEND General Practice
DX: C34.12 Malignant neoplasm of upper lobe, left bronchus or lung (principal)

== ENCOUNTER → 2022-06-25 | Outpatient (CLI) | payer MEDICARE, OTHER ==
[~2022-06-25] MED LIST changes: +ISOVUE-370 76% 100ML VIAL As Ordered ONE
== END ==
LOC: M RAD 12:48
PROVIDERS: ATTEND Specialist
DX: C34.12 Malignant neoplasm of upper lobe, left bronchus or lung (principal); I51.7 Cardiomegaly; I70.0 Atherosclerosis of aorta; I25.10 Atherosclerotic heart disease of native coronary artery without angina pectoris; Z95.2 Presence of prosthetic heart valve; Z95.0 Presence of cardiac pacemaker; K44.9 Diaphragmatic hernia without obstruction or gangrene; R91.8 Other nonspecific abnormal finding of lung field
CPT/HCPCS: 71260; Q9967

== ENCOUNTER → 2022-07-07 | Outpatient (CLI) | payer MEDICARE, OTHER ==
[~2022-07-07] MED LIST changes: -ISOVUE-370 76% 100ML VIAL As Ordered ONE; +[UNRECOGNIZED DRUG - CODE] PO
[2022-07-07 10:20] LABS: HEMATOCRIT 34.4 % (36.0-47.0); HEMOGLOBIN 11.1 g/dl (12.0-15.5); MEAN CORPUSCULAR HEMOGLOBIN 30.8 pg (27.0-33.0); MEAN CORPUSCULAR HGB CONC 32.3 g/dl (32.0-36.5); MEAN CORPUSCULAR VOLUME 95.6 fl (80.0-96.0); PLATELET COUNT, AUTOMATED 191 10^3/uL (150-450); WHITE BLOOD COUNT 6.9 10^3/uL (4.0-10.0)
[2022-07-07 10:46] LABS: CALCIUM LEVEL 9.5 MG/DL (8.3-10.6); CREATININE FOR GFR 1.39 MG/DL (0.55-1.30); GLOMERULAR FILTRATION RATE 39.5 (>39); POTASSIUM SERUM 4.4 MMOL/L (3.5-5.1)
== END ==
LOC: M LAB 09:30
PROVIDERS: ATTEND Internal Medicine Cardiovascular Disease
DX: I48.4 Atypical atrial flutter (principal)

== ENCOUNTER 2022-07-16 10:11 | Outpatient (RCR) | payer MEDICARE, OTHER | END 2022-07-24 | LOC: M ONCR 10:11 | PROVIDERS: ATTEND General Practice | DX: C34.12 Malignant neoplasm of upper lobe, left bronchus or lung (principal) ==

== ENCOUNTER 2022-08-10 14:12 | Outpatient (RCR) | payer MEDICARE, OTHER | END 2022-08-24 | LOC: M ONCR 14:12 | PROVIDERS: ATTEND General Practice | DX: C34.12 Malignant neoplasm of upper lobe, left bronchus or lung (principal) ==

== ENCOUNTER → 2022-09-18 | Outpatient (CLI) | payer MEDICARE, OTHER ==
[~2022-09-18] MED LIST changes: +AMOX500C; +ISOVUE-370 76% 100ML VIAL As Ordered ONE
== END ==
LOC: M RAD 09:33
PROVIDERS: ATTEND Specialist
DX: C34.12 Malignant neoplasm of upper lobe, left bronchus or lung (principal); R91.8 Other nonspecific abnormal finding of lung field; N28.89 Other specified disorders of kidney and ureter; M19.011 Primary osteoarthritis, right shoulder; M19.012 Primary osteoarthritis, left shoulder; M51.34 Other intervertebral disc degeneration, thoracic region; I70.0 Atherosclerosis of aorta; I51.7 Cardiomegaly; I34.81 Nonrheumatic mitral (valve) annulus calcification
CPT/HCPCS: 71260; Q9967

== ENCOUNTER → 2022-11-29 | Outpatient (CLI) | payer MEDICARE, OTHER ==
[~2022-11-29] MED LIST changes: +DEXA4TA PO; +FOLI1TAB11 PO; -ISOVUE-370 76% 100ML VIAL As Ordered ONE
== END ==
LOC: M ONCR 09:22
PROVIDERS: ATTEND General Practice
DX: C34.12 Malignant neoplasm of upper lobe, left bronchus or lung (principal); Z71.2 Person consulting for explanation of examination or test findings; Z79.01 Long term (current) use of anticoagulants; Z79.51 Long term (current) use of inhaled steroids; Z79.82 Long term (current) use of aspirin; Z79.899 Other long term (current) drug therapy; Z87.891 Personal history of nicotine dependence; Z92.21 Personal history of antineoplastic chemotherapy; Z92.3 Personal history of irradiation

== ENCOUNTER → 2023-01-24 | Outpatient (CLI) | payer MEDICARE, OTHER ==
[~2023-01-24] MED LIST changes: +ISOVUE-370 76% 100ML VIAL As Ordered ONE; -LIDO1CRE42 TOP; +LIDO30CR18 TOP
== END ==
LOC: M RAD 09:47
PROVIDERS: ATTEND Specialist
DX: C34.90 Malignant neoplasm of unspecified part of unspecified bronchus or lung (principal)
CPT/HCPCS: 71260; Q9967

== ENCOUNTER → 2023-04-08 | Outpatient (CLI) | payer MEDICARE, OTHER ==
[~2023-04-08] MED LIST changes: +ENTR1TAB7 PO; -ISOVUE-370 76% 100ML VIAL As Ordered ONE; +JARD1TAB PO
== END ==
LOC: M RAD 09:57
PROVIDERS: ATTEND Family Medicine
DX: M19.031 Primary osteoarthritis, right wrist (principal)

== ENCOUNTER → 2023-04-15 | Outpatient (CLI) | payer MEDICARE, OTHER | LOC: M PLARAD 09:10 | PROVIDERS: ATTEND Specialist | DX: C34.12 Malignant neoplasm of upper lobe, left bronchus or lung (principal); Z92.21 Personal history of antineoplastic chemotherapy; Z92.3 Personal history of irradiation | CPT/HCPCS: 78815; A9552 ==

== ENCOUNTER → 2023-04-29 | Outpatient (CLI) | payer MEDICARE, OTHER ==
[~2023-04-29] MED LIST changes: +LEVO1TAB39 PO
[2023-04-29 13:32] LABS: PROTHROMBIN TIME 57.8 SECONDS (12.5-14.5)
[2023-04-29 13:40] LABS: INR 7.03
== END ==
LOC: M PLALAB 11:50
PROVIDERS: ATTEND Internal Medicine Cardiovascular Disease
DX: Z95.2 Presence of prosthetic heart valve (principal)

== ENCOUNTER → 2023-05-10 | Outpatient (CLI) | payer MEDICARE, OTHER | LOC: M RAD 10:48 | PROVIDERS: ATTEND Specialist | DX: C34.90 Malignant neoplasm of unspecified part of unspecified bronchus or lung (principal); I27.20 Pulmonary hypertension, unspecified ==

== ENCOUNTER 2023-05-15 12:25 | Inpatient (IN) | payer MEDICARE, OTHER ==
[~2023-05-15] VITALS: Ht 154.9 cm; Wt 68.0 kg
[2023-05-15] VITALS (13 sets, daily range): BP systolic 116–131; BP diastolic 54–59; TEMP 97.3–98.8; O2SAT 90–97
[2023-05-15] MEDS ORDERED: ASPIRIN 81MG CHEW TABLET PO ONE (12:45)
[2023-05-15] MEDS: IPRATROPIUM 0.5MG/ALBUTEROL 2.5MG INH SOL UD 3ML (DUONEB) NEB PRN ×3 (12:57→13:15)
[2023-05-15 13:25] LABS: BASO % 0.2 % (0.0-1.0); EOS # 0.2 10^3/uL (0.0-0.5); EOS % 1.9 % (0.0-3.0); HEMATOCRIT 25.8 % (36.0-47.0); HEMOGLOBIN 7.9 g/dl (12.0-15.5); LYMPH # 0.8 10^3/uL (1.5-5.0); LYMPH % 8.2 % (24.0-44.0); MEAN CORPUSCULAR HEMOGLOBIN 31.2 pg (27.0-33.0); MEAN CORPUSCULAR HGB CONC 30.6 g/dl (32.0-36.5); MONO # 1.1 10^3/uL (0.0-0.8); MONO % 11.9 % (2.0-8.0); NEUTROPHILS # 7.1 10^3/uL (1.5-8.5); NEUTROPHILS % 75.9 % (36.0-66.0); PLATELET COUNT, AUTOMATED 330 10^3/uL (150-450); RED BLOOD COUNT 2.53 10^6/uL (4.00-5.40); WHITE BLOOD COUNT 9.4 10^3/uL (4.0-10.0)
[2023-05-15 13:27] LABS: ABG BASE EXCESS 2.7 (-2.0-2.0); ABG HCO3 26.3 MMOL/L (22.0-26.0); ABG O2 SATURATION 96.7 % (95.0-99.0); ABG PARTIAL PRESSURE CO2 36.2 mmHg (35.0-45.0); ABG PARTIAL PRESSURE O2 87.7 mmHg (75.0-100.0); ABG STANDARD HCO3 26.9 MMOL/L. (22.0-26.0); ABG TOTAL CO2 27.4 MMOL/L (23.0-31.0); ABG pH (ARTERIAL) 7.479 UNITS (7.350-7.450)
[2023-05-15 13:42] LABS: INR 3.24; PROTHROMBIN TIME 31.9 SECONDS (12.5-14.5)
[2023-05-15 13:54] LABS: ALBUMIN 2.2 G/DL (3.2-5.2); ALKALINE PHOSPHATASE 84 U/L (46-116); ALT/SGPT 21 U/L (7.0-40); AST/SGOT 35 U/L (<34); BILIRUBIN,DIRECT 0.3 MG/DL (<0.4); BILIRUBIN,TOTAL 0.6 MG/DL (0.3-1.2); BLOOD UREA NITROGEN 15 MG/DL (9-23); CALCIUM LEVEL 8.3 MG/DL (8.3-10.6); CARBON DIOXIDE LEVEL 28 MMOL/L (20-31); CHLORIDE LEVEL 104 MMOL/L (98-107); CK-MB VALUE MASS < 1.0 NG/ML (<3.6); CPK CREATINE PHOSPHOKINASE 18 U/L (34-145); CREATININE FOR GFR 0.92 MG/DL (0.55-1.30); GLOMERULAR FILTRATION RATE > 60.0 (>39); GLUCOSE, FASTING 121 MG/DL (74-106); MB/CK RELATIVE INDEX 5.55 (< OR =4); POTASSIUM SERUM 3.2 MMOL/L (3.5-5.1); SODIUM LEVEL 139 MMOL/L (136-145); TOTAL PROTEIN 6.1 G/DL (5.7-8.2)
[2023-05-15] MEDS ORDERED: ISOVUE-370 76% 100ML VIAL As Ordered ONE (14:03)
[2023-05-15 14:06] LABS: RSV AMPLIFICATION NEGATIVE (NEGATIVE)
[2023-05-15] MEDS ORDERED: POTASSIUM CHLORIDE 10MEQ SR TABLET PO ONE (14:15)
[2023-05-15] MEDS ORDERED: DOXYCYCLINE HYCLATE 100MG TABLET PO ONE (14:55)
[2023-05-15] MEDS ORDERED: cefTRIAXone SOD 1 GM in D5W MINI-BAG PLUS 50 ML IV ONE (14:55)
[2023-05-15] MEDS ORDERED: MED REC IN PROGRESS XX SCH (16:00)
[2023-05-15 16:59] LABS: PROCALCITONIN 0.18 ng/ml
[2023-05-15] MEDS: PIPERACILLIN/TAZOBACTAM SOD 4.5 GM in D5W MINI-BAG PLUS 50 ML IV SCH ×2 (18:11→22:05)
[2023-05-15] MEDS ORDERED: DEXA4TA PO (18:33)
[2023-05-15] MEDS ORDERED: FOLI1TAB11 PO (18:35)
[2023-05-15] MEDS ORDERED: ONDA-84 PO (18:36)
[2023-05-15] MEDS ORDERED: PROC10TA5 PO (18:38)
[2023-05-15] MEDS ORDERED: HOME MED LIST COMPLETE! XX SCH (18:40)
[2023-05-15] MEDS: DOXYCYCLINE HYCLATE 100MG TABLET PO SCH (20:32)
[2023-05-15] MEDS: BENZONATATE 100MG CAPSULE PO PRN (22:04)
[2023-05-16] VITALS (7 sets, daily range): BP systolic 107–140; BP diastolic 50–68; TEMP 96.8–98.2; O2SAT 91–96
[2023-05-16] MEDS: RAMELTEON 8 MG TAB (ROZEREM) PO PRN ×2 (01:07→21:44)
[2023-05-16] MEDS: IPRATROPIUM 0.5MG/ALBUTEROL 2.5MG INH SOL UD 3ML (DUONEB) NEB PRN ×2 (04:02→18:13)
[2023-05-16] MEDS: PIPERACILLIN/TAZOBACTAM SOD 4.5 GM in D5W MINI-BAG PLUS 50 ML IV SCH ×2 (04:02→11:02)
[2023-05-16] MEDS ORDERED: ONDANSETRON 4MG TAB PO PRN (05:10)
[2023-05-16] MEDS ORDERED: PROCHLORPERAZINE 5MG TAB PO PRN (05:10)
[2023-05-16] MEDS: BENZONATATE 100MG CAPSULE PO PRN (06:28)
[2023-05-16 06:32] LABS: BASO % 0.3 % (0.0-1.0); EOS # 0.1 10^3/uL (0.0-0.5); HEMATOCRIT 31.3 % (36.0-47.0); LYMPH # 0.6 10^3/uL (1.5-5.0); LYMPH % 5.8 % (24.0-44.0); MEAN CORPUSCULAR HEMOGLOBIN 31.3 pg (27.0-33.0); MEAN CORPUSCULAR HGB CONC 32.6 g/dl (32.0-36.5); MONO # 1.3 10^3/uL (0.0-0.8); MONO % 11.9 % (2.0-8.0); NEUTROPHILS # 8.5 10^3/uL (1.5-8.5); NEUTROPHILS % 78.4 % (36.0-66.0); PLATELET COUNT, AUTOMATED 272 10^3/uL (150-450); RED BLOOD COUNT 3.26 10^6/uL (4.00-5.40); WHITE BLOOD COUNT 10.8 10^3/uL (4.0-10.0)
[2023-05-16 06:35] LABS: INR 3.57; PROTHROMBIN TIME 34.3 SECONDS (12.5-14.5)
[2023-05-16 06:40] LABS: HEMOGLOBIN 10.2 g/dl (12.0-15.5)
[2023-05-16 06:53] LABS: BILIRUBIN,TOTAL 1.4 MG/DL (0.3-1.2); CALCIUM LEVEL 8.5 MG/DL (8.3-10.6); CREATININE FOR GFR 1.2 MG/DL (0.55-1.30); GLOMERULAR FILTRATION RATE 46.8 (>39); MAGNESIUM LEVEL 1.1 MG/DL (1.8-2.4); PHOSPHORUS LEVEL 2.6 MG/DL (2.4-5.1); POTASSIUM SERUM 3.6 MMOL/L (3.5-5.1); TOTAL PROTEIN 5.7 G/DL (5.7-8.2)
[2023-05-16] MEDS ORDERED: METO1TAB7 PO (07:38)
[2023-05-16] MEDS: MAG SULF 1GM/100ML (MAG RUN) 1 GM in IV 1 EA IV SCH ×2 (08:28→09:38)
[2023-05-16] MEDS: DOXYCYCLINE HYCLATE 100MG TABLET PO SCH ×2 (08:28→19:34)
[2023-05-16] MEDS: FOLIC ACID 1MG TAB PO SCH (08:28)
[2023-05-16] MEDS: MAGNESIUM OXIDE 400MG TAB (MAG-OX) PO SCH ×2 (08:28→19:34)
[2023-05-16] MEDS: CYANOCOBALAMIN 500 MCG TAB PO SCH (08:28)
[2023-05-16] MEDS: ASCORBIC ACID 250 MG TAB PO SCH (08:28)
[2023-05-16] MEDS: ENTRESTO 49-51MG TABLET (SACUBITRIL/VALSARTAN) PO SCH ×2 (08:28→19:34)
[2023-05-16] MEDS: MULTIVITAMINS/MINERALS THERAP 1 TAB PO SCH (08:29)
[2023-05-16] MEDS: METOPROLOL SUCC (TopROL XL) 50MG **XL** TAB PO SCH (11:02)
[2023-05-16] MEDS: PIPERACILLIN/TAZOBACTAM SOD 3.375 GM in D5W MINI-BAG PLUS 50 ML IV SCH ×2 (16:15→22:05)
[2023-05-16] MEDS ORDERED: WARFARIN SOD 5MG TAB PO SCH (17:00)
[2023-05-16] MEDS: guaiFENesin DM *SUGAR FREE* 5ML**DIABETIC TUSSIN DM PO PRN (19:34)
[2023-05-16] MEDS: ATORVASTATIN 20 MG TAB PO SCH (19:34)
[2023-05-16] MEDS: predniSONE 20 MG TAB PO SCH (19:34)
[2023-05-17 02:00] VITALS: BP 106/49; TEMP 96.8; O2SAT 93
[2023-05-17] MEDS: PIPERACILLIN/TAZOBACTAM SOD 3.375 GM in D5W MINI-BAG PLUS 50 ML IV SCH ×4 (04:03→23:00)
[2023-05-17 06:00] VITALS: BP 105/64; TEMP 96.8; O2SAT 93
[2023-05-17] MEDS: IPRATROPIUM 0.5MG/ALBUTEROL 2.5MG INH SOL UD 3ML (DUONEB) NEB PRN ×3 (07:51→19:31)
[2023-05-17 08:03] LABS: INR 3.32; PROTHROMBIN TIME 32.5 SECONDS (12.5-14.5)
[2023-05-17] MEDS: ASCORBIC ACID 250 MG TAB PO SCH (09:38)
[2023-05-17] MEDS: CYANOCOBALAMIN 500 MCG TAB PO SCH (09:38)
[2023-05-17] MEDS: DOXYCYCLINE HYCLATE 100MG TABLET PO SCH ×2 (09:38→21:29)
[2023-05-17] MEDS: ENTRESTO 49-51MG TABLET (SACUBITRIL/VALSARTAN) PO SCH ×2 (09:38→21:29)
[2023-05-17] MEDS: FOLIC ACID 1MG TAB PO SCH (09:38)
[2023-05-17] MEDS: MULTIVITAMINS/MINERALS THERAP 1 TAB PO SCH (09:38)
[2023-05-17] MEDS: predniSONE 20 MG TAB PO SCH (09:38)
[2023-05-17] MEDS: MAGNESIUM OXIDE 400MG TAB (MAG-OX) PO SCH ×2 (09:39→21:29)
[2023-05-17] MEDS: METOPROLOL SUCC (TopROL XL) 50MG **XL** TAB PO SCH (09:40)
[2023-05-17 10:00] VITALS: BP 104/47; TEMP 97.3; O2SAT 93
[2023-05-17 14:00] VITALS: BP 113/48; TEMP 97.3; O2SAT 93
[2023-05-17] MEDS: WARFARIN SOD 5MG TAB PO SCH (17:13)
[2023-05-17 18:00] VITALS: BP 115/47; TEMP 97; O2SAT 92
[2023-05-17] MEDS: ATORVASTATIN 20 MG TAB PO SCH (21:29)
[2023-05-17] MEDS: guaiFENesin DM *SUGAR FREE* 5ML**DIABETIC TUSSIN DM PO PRN (21:29)
[2023-05-17] MEDS: RAMELTEON 8 MG TAB (ROZEREM) PO PRN (21:32)
[2023-05-17 22:00] VITALS: BP 113/46; TEMP 97.7; O2SAT 94
[2023-05-18 02:00] VITALS: BP 120/57; TEMP 97.3; O2SAT 94
[2023-05-18] MEDS: PIPERACILLIN/TAZOBACTAM SOD 3.375 GM in D5W MINI-BAG PLUS 50 ML IV SCH ×4 (05:12→23:07)
[2023-05-18 06:00] VITALS: BP 102/49; TEMP 97.3; O2SAT 95
[2023-05-18 06:16] LABS: BASO % 0.1 % (0.0-1.0); HEMATOCRIT 31.1 % (36.0-47.0); LYMPH # 0.4 10^3/uL (1.5-5.0); LYMPH % 2.6 % (24.0-44.0); MEAN CORPUSCULAR HEMOGLOBIN 31.2 pg (27.0-33.0); MEAN CORPUSCULAR HGB CONC 32.2 g/dl (32.0-36.5); MEAN CORPUSCULAR VOLUME 96.9 fl (80.0-96.0); MONO # 0.8 10^3/uL (0.0-0.8); MONO % 5.5 % (2.0-8.0); NEUTROPHILS # 13.6 10^3/uL (1.5-8.5); NEUTROPHILS % 90.5 % (36.0-66.0); PLATELET COUNT, AUTOMATED 266 10^3/uL (150-450); RED BLOOD COUNT 3.21 10^6/uL (4.00-5.40)
[2023-05-18 06:50] LABS: ALBUMIN 1.9 G/DL (3.2-5.2); BILIRUBIN,TOTAL 0.4 MG/DL (0.3-1.2); CALCIUM LEVEL 9.1 MG/DL (8.3-10.6); CREATININE FOR GFR 1.21 MG/DL (0.55-1.30); GLOMERULAR FILTRATION RATE 46.3 (>39); MAGNESIUM LEVEL 1.9 MG/DL (1.8-2.4); PHOSPHORUS LEVEL 3.4 MG/DL (2.4-5.1); POTASSIUM SERUM 3.4 MMOL/L (3.5-5.1); TOTAL PROTEIN 5.5 G/DL (5.7-8.2)
[2023-05-18] MEDS: IPRATROPIUM 0.5MG/ALBUTEROL 2.5MG INH SOL UD 3ML (DUONEB) NEB PRN ×3 (06:57→21:13)
[2023-05-18] MEDS: DOXYCYCLINE HYCLATE 100MG TABLET PO SCH ×2 (08:12→20:16)
[2023-05-18] MEDS: MULTIVITAMINS/MINERALS THERAP 1 TAB PO SCH (08:12)
[2023-05-18] MEDS: FOLIC ACID 1MG TAB PO SCH (08:12)
[2023-05-18] MEDS: MAGNESIUM OXIDE 400MG TAB (MAG-OX) PO SCH ×2 (08:13→20:15)
[2023-05-18] MEDS: predniSONE 20 MG TAB PO SCH (08:13)
[2023-05-18] MEDS: CYANOCOBALAMIN 500 MCG TAB PO SCH (08:13)
[2023-05-18] MEDS: ASCORBIC ACID 250 MG TAB PO SCH (08:13)
[2023-05-18] MEDS: METOPROLOL SUCC (TopROL XL) 50MG **XL** TAB PO SCH (08:14)
[2023-05-18] MEDS: ENTRESTO 49-51MG TABLET (SACUBITRIL/VALSARTAN) PO SCH ×2 (08:22→20:16)
[2023-05-18 10:00] VITALS: BP 109/49; TEMP 97.5; O2SAT 93
[2023-05-18] MEDS ORDERED: POTASSIUM CHLORIDE 10MEQ SR TABLET PO ONE (11:15)
[2023-05-18 14:00] VITALS: BP 128/78; TEMP 98.2; O2SAT 95
[2023-05-18] MEDS: WARFARIN SOD 5MG TAB PO SCH (16:44)
[2023-05-18 18:00] VITALS: BP 118/59; TEMP 98.9; O2SAT 93
[2023-05-18 19:50] VITALS: BP 106/48; TEMP 97.7; O2SAT 92
[2023-05-18] MEDS: RAMELTEON 8 MG TAB (ROZEREM) PO PRN (20:15)
[2023-05-18] MEDS: guaiFENesin DM *SUGAR FREE* 5ML**DIABETIC TUSSIN DM PO PRN (20:16)
[2023-05-18] MEDS: ATORVASTATIN 20 MG TAB PO SCH (20:16)
[2023-05-19 02:00] VITALS: BP 112/49; TEMP 97.2; O2SAT 94
[2023-05-19] MEDS: PIPERACILLIN/TAZOBACTAM SOD 3.375 GM in D5W MINI-BAG PLUS 50 ML IV SCH ×4 (05:03→23:02)
[2023-05-19 06:21] VITALS: BP 114/50; TEMP 97.3; O2SAT 92
[2023-05-19] MEDS: IPRATROPIUM 0.5MG/ALBUTEROL 2.5MG INH SOL UD 3ML (DUONEB) NEB PRN ×3 (06:25→19:43)
[2023-05-19 06:35] LABS: HEMOGLOBIN 10.8 g/dl (12.0-15.5); MEAN CORPUSCULAR HEMOGLOBIN 31.3 pg (27.0-33.0); MEAN CORPUSCULAR HGB CONC 31.8 g/dl (32.0-36.5); MEAN CORPUSCULAR VOLUME 98.6 fl (80.0-96.0); PLATELET COUNT, AUTOMATED 310 10^3/uL (150-450); RED BLOOD COUNT 3.45 10^6/uL (4.00-5.40); WHITE BLOOD COUNT 13.6 10^3/uL (4.0-10.0)
[2023-05-19 06:56] LABS: CALCIUM LEVEL 9.4 MG/DL (8.3-10.6); CREATININE FOR GFR 1.33 MG/DL (0.55-1.30); GLOMERULAR FILTRATION RATE 41.5 (>39); MAGNESIUM LEVEL 1.8 MG/DL (1.8-2.4); PHOSPHORUS LEVEL 2.9 MG/DL (2.4-5.1); POTASSIUM SERUM 3.8 MMOL/L (3.5-5.1)
[2023-05-19] MEDS: DOXYCYCLINE HYCLATE 100MG TABLET PO SCH ×2 (08:03→21:05)
[2023-05-19] MEDS: CYANOCOBALAMIN 500 MCG TAB PO SCH (08:03)
[2023-05-19] MEDS: MULTIVITAMINS/MINERALS THERAP 1 TAB PO SCH (08:04)
[2023-05-19] MEDS: FOLIC ACID 1MG TAB PO SCH (08:04)
[2023-05-19] MEDS: ASCORBIC ACID 250 MG TAB PO SCH (08:04)
[2023-05-19] MEDS: predniSONE 20 MG TAB PO SCH (08:04)
[2023-05-19] MEDS: ENTRESTO 49-51MG TABLET (SACUBITRIL/VALSARTAN) PO SCH ×2 (08:04→21:05)
[2023-05-19] MEDS: METOPROLOL SUCC (TopROL XL) 50MG **XL** TAB PO SCH (08:04)
[2023-05-19] MEDS: MAGNESIUM OXIDE 400MG TAB (MAG-OX) PO SCH ×2 (08:04→21:05)
[2023-05-19 10:00] VITALS: BP 113/50; TEMP 97.7; O2SAT 93
[2023-05-19] MEDS: guaiFENesin DM *SUGAR FREE* 5ML**DIABETIC TUSSIN DM PO PRN (12:04)
[2023-05-19 14:00] VITALS: BP 113/50; TEMP 97.3; O2SAT 97
[2023-05-19] MEDS: WARFARIN SOD 5MG TAB PO SCH (16:45)
[2023-05-19 18:00] VITALS: BP 111/51; TEMP 97.2; O2SAT 93
[2023-05-19 20:21] VITALS: BP 113/52; TEMP 97.3; O2SAT 92
[2023-05-19] MEDS: ATORVASTATIN 20 MG TAB PO SCH (21:05)
[2023-05-19] MEDS: guaiFENesin DM LIQ 10ML UD PO PRN (21:18)
[2023-05-19] MEDS: RAMELTEON 8 MG TAB (ROZEREM) PO PRN (23:02)
[2023-05-20 02:00] VITALS: BP 125/69; TEMP 97.7; O2SAT 88
[2023-05-20] MEDS: IPRATROPIUM 0.5MG/ALBUTEROL 2.5MG INH SOL UD 3ML (DUONEB) NEB PRN ×2 (03:33→19:22)
[2023-05-20 05:03] VITALS: BP 124/55; TEMP 97.5; O2SAT 88
[2023-05-20] MEDS: PIPERACILLIN/TAZOBACTAM SOD 3.375 GM in D5W MINI-BAG PLUS 50 ML IV SCH ×4 (05:10→22:22)
[2023-05-20 07:13] LABS: BASO % 0.3 % (0.0-1.0); EOS % 0.1 % (0.0-3.0); HEMATOCRIT 32.4 % (36.0-47.0); HEMOGLOBIN 10.2 g/dl (12.0-15.5); LYMPH # 0.6 10^3/uL (1.5-5.0); LYMPH % 4.9 % (24.0-44.0); MEAN CORPUSCULAR HEMOGLOBIN 30.9 pg (27.0-33.0); MEAN CORPUSCULAR HGB CONC 31.5 g/dl (32.0-36.5); MEAN CORPUSCULAR VOLUME 98.2 fl (80.0-96.0); MONO # 1.1 10^3/uL (0.0-0.8); MONO % 8.2 % (2.0-8.0); NEUTROPHILS # 10.8 10^3/uL (1.5-8.5); NEUTROPHILS % 83.4 % (36.0-66.0); PLATELET COUNT, AUTOMATED 269 10^3/uL (150-450); WHITE BLOOD COUNT 12.9 10^3/uL (4.0-10.0)
[2023-05-20 07:41] LABS: CALCIUM LEVEL 9.1 MG/DL (8.3-10.6); CREATININE FOR GFR 1.22 MG/DL (0.55-1.30); GLOMERULAR FILTRATION RATE 45.7 (>39); MAGNESIUM LEVEL 1.7 MG/DL (1.8-2.4); POTASSIUM SERUM 3.5 MMOL/L (3.5-5.1)
[2023-05-20] MEDS: MAGNESIUM OXIDE 400MG TAB (MAG-OX) PO SCH ×2 (08:01→21:16)
[2023-05-20] MEDS: ASCORBIC ACID 250 MG TAB PO SCH (08:01)
[2023-05-20] MEDS: MULTIVITAMINS/MINERALS THERAP 1 TAB PO SCH (08:01)
[2023-05-20] MEDS: FOLIC ACID 1MG TAB PO SCH (08:01)
[2023-05-20] MEDS: DOXYCYCLINE HYCLATE 100MG TABLET PO SCH ×2 (08:01→21:16)
[2023-05-20] MEDS: CYANOCOBALAMIN 500 MCG TAB PO SCH (08:01)
[2023-05-20] MEDS: predniSONE 20 MG TAB PO SCH (08:01)
[2023-05-20] MEDS: guaiFENesin DM LIQ 10ML UD PO PRN ×2 (08:02→21:15)
[2023-05-20] MEDS: METOPROLOL SUCC (TopROL XL) 50MG **XL** TAB PO SCH (08:03)
[2023-05-20] MEDS: ENTRESTO 49-51MG TABLET (SACUBITRIL/VALSARTAN) PO SCH ×2 (08:03→21:15)
[2023-05-20 14:00] VITALS: BP 115/56; TEMP 97.7; O2SAT 95
[2023-05-20] MEDS: WARFARIN SOD 5MG TAB PO SCH (17:08)
[2023-05-20 18:00] VITALS: BP 116/61; TEMP 97.9; O2SAT 94
[2023-05-20] MEDS: RAMELTEON 8 MG TAB (ROZEREM) PO PRN (21:15)
[2023-05-20] MEDS: ATORVASTATIN 20 MG TAB PO SCH (21:16)
[2023-05-20 22:00] VITALS: BP 115/52; TEMP 97.3; O2SAT 93
[2023-05-21] VITALS (8 sets, daily range): BP systolic 115–129; BP diastolic 53–60; TEMP 96.8–97.5; O2SAT 77–94
[2023-05-21] MEDS: IPRATROPIUM 0.5MG/ALBUTEROL 2.5MG INH SOL UD 3ML (DUONEB) NEB PRN (04:56)
[2023-05-21] MEDS: PIPERACILLIN/TAZOBACTAM SOD 3.375 GM in D5W MINI-BAG PLUS 50 ML IV SCH ×2 (05:15→11:32)
[2023-05-21] MEDS: guaiFENesin DM LIQ 10ML UD PO PRN (05:15)
[2023-05-21 06:31] LABS: BASO # 0.1 10^3/uL (0.0-0.2); BASO % 0.5 % (0.0-1.0); EOS % 0.2 % (0.0-3.0); HEMOGLOBIN 10.7 g/dl (12.0-15.5); LYMPH # 0.8 10^3/uL (1.5-5.0); MEAN CORPUSCULAR HEMOGLOBIN 30.9 pg (27.0-33.0); MEAN CORPUSCULAR HGB CONC 31.5 g/dl (32.0-36.5); MEAN CORPUSCULAR VOLUME 98.3 fl (80.0-96.0); MONO # 0.8 10^3/uL (0.0-0.8); MONO % 6.8 % (2.0-8.0); NEUTROPHILS # 8.9 10^3/uL (1.5-8.5); NEUTROPHILS % 80.5 % (36.0-66.0); PLATELET COUNT, AUTOMATED 260 10^3/uL (150-450); RED BLOOD COUNT 3.46 10^6/uL (4.00-5.40); WHITE BLOOD COUNT 11.1 10^3/uL (4.0-10.0)
[2023-05-21 07:01] LABS: CREATININE FOR GFR 1.16 MG/DL (0.55-1.30); GLOMERULAR FILTRATION RATE 48.5 (>39); MAGNESIUM LEVEL 1.5 MG/DL (1.8-2.4); POTASSIUM SERUM 3.5 MMOL/L (3.5-5.1)
[2023-05-21] MEDS: MULTIVITAMINS/MINERALS THERAP 1 TAB PO SCH (08:06)
[2023-05-21] MEDS: ASCORBIC ACID 250 MG TAB PO SCH (08:06)
[2023-05-21] MEDS: FOLIC ACID 1MG TAB PO SCH (08:06)
[2023-05-21] MEDS: ENTRESTO 49-51MG TABLET (SACUBITRIL/VALSARTAN) PO SCH (08:06)
[2023-05-21] MEDS: DOXYCYCLINE HYCLATE 100MG TABLET PO SCH (08:06)
[2023-05-21] MEDS: predniSONE 20 MG TAB PO SCH (08:06)
[2023-05-21] MEDS: METOPROLOL SUCC (TopROL XL) 50MG **XL** TAB PO SCH (08:06)
[2023-05-21] MEDS: CYANOCOBALAMIN 500 MCG TAB PO SCH (08:06)
[2023-05-21] MEDS: MAGNESIUM OXIDE 400MG TAB (MAG-OX) PO SCH (08:07)
[2023-05-21] MEDS ORDERED: PRED10TA2 PO (08:31)
[2023-05-21] MEDS ORDERED: MAGNESIUM OXIDE 400MG TAB (MAG-OX) PO ONE (09:00)
[2023-05-21] MEDS ORDERED: WARFARIN SOD 7.5MG TAB PO SCH ×2 (17:00)
== END 2023-05-21 15:39 | disposition home or self-care (01) | DRG 189 ==
LOC: M ED 12:25 → M ED INP 16:20 → ENRESERV 16:45 → M MSPAV 17:26
PROVIDERS: ADMIT Internal Medicine; ATTEND Family Medicine
PROC: 30233N1 Transfusion of Nonautologous Red Blood Cells into Peripheral Vein, Percutaneous Approach (ICD-10-PCS; principal; 2023-05-15)
DX: J96.01 Acute respiratory failure with hypoxia (principal); J18.9 Pneumonia, unspecified organism; C34.90 Malignant neoplasm of unspecified part of unspecified bronchus or lung; I13.0 Hypertensive heart and chronic kidney disease with heart failure and stage 1 through stage 4 chronic kidney disease, or unspecified chronic kidney disease; I50.32 Chronic diastolic (congestive) heart failure; I49.5 Sick sinus syndrome; I48.0 Paroxysmal atrial fibrillation; E78.5 Hyperlipidemia, unspecified; N18.9 Chronic kidney disease, unspecified; D53.9 Nutritional anemia, unspecified; E87.6 Hypokalemia; Z79.01 Long term (current) use of anticoagulants; Z79.899 Other long term (current) drug therapy; Z20.822 Contact with and (suspected) exposure to COVID-19; Z95.0 Presence of cardiac pacemaker; Z95.2 Presence of prosthetic heart valve; Z90.79 Acquired absence of other genital organ(s); Z83.3 Family history of diabetes mellitus

== ENCOUNTER → 2023-06-18 | Outpatient (CLI) | payer MEDICARE, OTHER ==
[~2023-06-18] MED LIST changes: +PRED10TA2 PO
== END ==
LOC: M ONCR 10:21
PROVIDERS: ATTEND General Practice
DX: C34.12 Malignant neoplasm of upper lobe, left bronchus or lung (principal); Z71.2 Person consulting for explanation of examination or test findings; Z87.891 Personal history of nicotine dependence; Z92.21 Personal history of antineoplastic chemotherapy; Z92.3 Personal history of irradiation; Z92.29 Personal history of other drug therapy; Z99.81 Dependence on supplemental oxygen; Z79.52 Long term (current) use of systemic steroids; Z79.84 Long term (current) use of oral hypoglycemic drugs; Z79.01 Long term (current) use of anticoagulants; Z79.899 Other long term (current) drug therapy

== ENCOUNTER 2023-06-22 05:15 | Inpatient (IN) | payer MEDICARE, OTHER ==
[2023-06-22] VITALS (14 sets, daily range): BP systolic 125–141; BP diastolic 59–81; TEMP 97.3–97.9; O2SAT 74–100
[~2023-06-22] VITALS: Ht 154.9 cm; Wt 69.9 kg
[2023-06-22] MEDS: IPRATROPIUM 0.5MG/ALBUTEROL 2.5MG INH SOL UD 3ML (DUONEB) NEB PRN (05:50)
[2023-06-22 06:00] LABS: BASO % 0.2 % (0.0-1.0); EOS % 0.4 % (0.0-3.0); HEMATOCRIT 28.8 % (36.0-47.0); HEMOGLOBIN 9.3 g/dl (12.0-15.5); LYMPH # 1.7 10^3/uL (1.5-5.0); LYMPH % 15.7 % (24.0-44.0); MEAN CORPUSCULAR HEMOGLOBIN 31.1 pg (27.0-33.0); MEAN CORPUSCULAR HGB CONC 32.3 g/dl (32.0-36.5); MEAN CORPUSCULAR VOLUME 96.3 fl (80.0-96.0); MONO # 0.6 10^3/uL (0.0-0.8); MONO % 5.7 % (2.0-8.0); NEUTROPHILS # 8.2 10^3/uL (1.5-8.5); NEUTROPHILS % 74.6 % (36.0-66.0); PLATELET COUNT, AUTOMATED 165 10^3/uL (150-450); RED BLOOD COUNT 2.99 10^6/uL (4.00-5.40); WHITE BLOOD COUNT 10.9 10^3/uL (4.0-10.0)
[2023-06-22 06:05] LABS: ABG BASE EXCESS -1.4 (-2.0-2.0); ABG HCO3 21.5 MMOL/L (22.0-26.0); ABG O2 SATURATION 84.9 % (95.0-99.0); ABG STANDARD HCO3 23.1 MMOL/L. (22.0-26.0); ABG TOTAL CO2 22.4 MMOL/L (23.0-31.0); ABG pH (ARTERIAL) 7.473 UNITS (7.350-7.450)
[2023-06-22 06:09] LABS: ABG PARTIAL PRESSURE O2 47.9 mmHg (75.0-100.0)
[2023-06-22] MEDS: ACETAMINOPHEN *IV* 1,000 MG in IV 1 EA IV ONE (06:16)
[2023-06-22 06:29] LABS: ALBUMIN 2.5 G/DL (3.2-5.2); ALKALINE PHOSPHATASE 131 U/L (46-116); ALT/SGPT 81 U/L (7.0-40); AST/SGOT 79 U/L (<34); BILIRUBIN,DIRECT 0.3 MG/DL (<0.4); BILIRUBIN,TOTAL 0.8 MG/DL (0.3-1.2); BLOOD UREA NITROGEN 24 MG/DL (9-23); CALCIUM LEVEL 8.5 MG/DL (8.3-10.6); CARBON DIOXIDE LEVEL 21 MMOL/L (20-31); CHLORIDE LEVEL 104 MMOL/L (98-107); CK-MB VALUE MASS < 1.0 NG/ML (<3.6); CREATININE FOR GFR 1.24 MG/DL (0.55-1.30); GLOMERULAR FILTRATION RATE 44.9 (>39); GLUCOSE, FASTING 168 MG/DL (74-106); POTASSIUM SERUM 3.8 MMOL/L (3.5-5.1); SODIUM LEVEL 136 MMOL/L (136-145); TOTAL PROTEIN 6.3 G/DL (5.7-8.2)
[2023-06-22 06:35] LABS: CPK CREATINE PHOSPHOKINASE 33 U/L (34-145); MB/CK RELATIVE INDEX 3.03 (< OR =4)
[2023-06-22] MEDS ORDERED: ISOVUE-370 76% 100ML VIAL As Ordered ONE (07:39)
[2023-06-22] MEDS: cefTRIAXone SOD 1 GM in D5W MINI-BAG PLUS 50 ML IV ONE (07:59)
[2023-06-22] MEDS: NS 2,020 ML in IV 1 EA IV ONE (07:59)
[2023-06-22 08:24] LABS: PROCALCITONIN 0.32 ng/ml
[2023-06-22 08:27] LABS: ABG BASE EXCESS 1.1 (-2.0-2.0); ABG HCO3 24.8 MMOL/L (22.0-26.0); ABG O2 SATURATION 85.9 % (95.0-99.0); ABG PARTIAL PRESSURE CO2 35.5 mmHg (35.0-45.0); ABG PARTIAL PRESSURE O2 50.9 mmHg (75.0-100.0); ABG STANDARD HCO3 25.3 MMOL/L. (22.0-26.0); ABG TOTAL CO2 25.9 MMOL/L (23.0-31.0); ABG pH (ARTERIAL) 7.462 UNITS (7.350-7.450)
[2023-06-22] MEDS ORDERED: PANT40TA29 PO (08:35)
[2023-06-22] MEDS ORDERED: MED REC IN PROGRESS XX SCH (09:05)
[2023-06-22] MEDS ORDERED: FLUT12HF3 PO (12:08)
[2023-06-22] MEDS ORDERED: HOME MED LIST COMPLETE! XX SCH (12:15)
[2023-06-22] MEDS ORDERED: ACETAMINOPHEN TAB 650MG DOSE (2X325MG) PO PRN (14:40)
[2023-06-22 15:31] LABS: INR 1.92; PROTHROMBIN TIME 21.3 SECONDS (12.5-14.5)
[2023-06-22 15:32] LABS: PARTIAL THROMBOPLASTIN TIME 48.2 SECONDS (24.8-34.2)
[2023-06-22 15:45] LABS: CK-MB VALUE MASS 1.4 NG/ML (<3.6)
[2023-06-22 15:47] LABS: MB/CK RELATIVE INDEX 5.18 (< OR =4)
[2023-06-22] MEDS: WARFARIN SOD 5MG TAB PO SCH (17:28)
[2023-06-22] MEDS: methylPREDNISolone 40MG 1ML VIAL IV SCH (17:29)
[2023-06-22] MEDS: DOXYCYCLINE HYCLATE 100 MG in D5W MINI-BAG PLUS 100 ML IV SCH (17:29)
[2023-06-22] MEDS: ALBUTEROL SULFATE 2.5MG/0.5ML INH NEB SOLN NEB SCH (19:49)
[2023-06-22] MEDS: ADVAIR HFA 230/21MCG INHALER INH SCH (19:50)
[2023-06-22] MEDS ORDERED: ALBUTEROL SULFATE 2.5MG/0.5ML INH NEB SOLN NEB SCH (20:00)
[2023-06-22] MEDS ORDERED: CEPACOL LOZENGE PO PRN (20:25)
[2023-06-22] MEDS: guaiFENesin 200 MG TAB PO PRN (21:58)
[2023-06-23] VITALS (30 sets, daily range): BP systolic 121–148; BP diastolic 59–67; TEMP 96.9–98.2; O2SAT 91–100
[2023-06-23 06:10] LABS: BASO % 0.1 % (0.0-1.0); HEMATOCRIT 25.5 % (36.0-47.0); HEMOGLOBIN 8.2 g/dl (12.0-15.5); LYMPH # 0.2 10^3/uL (1.5-5.0); MEAN CORPUSCULAR HEMOGLOBIN 31.1 pg (27.0-33.0); MEAN CORPUSCULAR HGB CONC 32.2 g/dl (32.0-36.5); MEAN CORPUSCULAR VOLUME 96.6 fl (80.0-96.0); MONO # 0.2 10^3/uL (0.0-0.8); NEUTROPHILS % 93.7 % (36.0-66.0); PLATELET COUNT, AUTOMATED 122 10^3/uL (150-450); RED BLOOD COUNT 2.64 10^6/uL (4.00-5.40); WHITE BLOOD COUNT 7.4 10^3/uL (4.0-10.0)
[2023-06-23 06:22] LABS: INR 1.83; PROTHROMBIN TIME 20.6 SECONDS (12.5-14.5)
[2023-06-23 06:23] LABS: PARTIAL THROMBOPLASTIN TIME 53.2 SECONDS (24.8-34.2)
[2023-06-23 06:29] LABS: CALCIUM LEVEL 8.1 MG/DL (8.3-10.6); CREATININE FOR GFR 1.07 MG/DL (0.55-1.30); GLOMERULAR FILTRATION RATE 53.2 (>39); POTASSIUM SERUM 3.2 MMOL/L (3.5-5.1)
[2023-06-23] MEDS: FOLIC ACID 1MG TAB PO SCH (08:29)
[2023-06-23] MEDS: PANTOPRAZOLE 40MG TAB (PROTONIX) PO SCH (08:29)
[2023-06-23] MEDS: POTASSIUM CHLORIDE 10MEQ SR TABLET PO ONE (08:29)
[2023-06-23] MEDS: DOXYCYCLINE HYCLATE 100MG TABLET PO SCH (08:29)
[2023-06-23] MEDS: cefTRIAXone SOD 1 GM in D5W MINI-BAG PLUS 50 ML IV SCH (08:30)
[2023-06-24] VITALS (16 sets, daily range): BP systolic 102–162; BP diastolic 44–70; TEMP 96.9–98; O2SAT 90–100
[2023-06-24 05:00] LABS: BASO % 0.2 % (0.0-1.0); HEMATOCRIT 25.2 % (36.0-47.0); LYMPH # 0.3 10^3/uL (1.5-5.0); LYMPH % 2.9 % (24.0-44.0); MEAN CORPUSCULAR HEMOGLOBIN 30.9 pg (27.0-33.0); MEAN CORPUSCULAR HGB CONC 31.7 g/dl (32.0-36.5); MEAN CORPUSCULAR VOLUME 97.3 fl (80.0-96.0); MONO # 0.3 10^3/uL (0.0-0.8); MONO % 2.9 % (2.0-8.0); NEUTROPHILS # 10.4 10^3/uL (1.5-8.5); NEUTROPHILS % 92.6 % (36.0-66.0); PLATELET COUNT, AUTOMATED 159 10^3/uL (150-450); RED BLOOD COUNT 2.59 10^6/uL (4.00-5.40); WHITE BLOOD COUNT 11.2 10^3/uL (4.0-10.0)
[2023-06-24 05:24] LABS: CALCIUM LEVEL 8.7 MG/DL (8.3-10.6); CREATININE FOR GFR 1.2 MG/DL (0.55-1.30); GLOMERULAR FILTRATION RATE 46.6 (>39); POTASSIUM SERUM 3.6 MMOL/L (3.5-5.1)
[2023-06-24] MEDS ORDERED: PILL CUTTER 1 EACH XX PRN (10:30)
[2023-06-24] MEDS: DAPAGLIFLOZIN PROPANEDIOL 10MG TABLET (FARXIGA) PO SCH (10:36)
[2023-06-24] MEDS: METOPROLOL SUCC (TopROL XL) 100MG *XL* TAB PO SCH (10:36)
[2023-06-24] MEDS: ENTRESTO 49-51MG TABLET (SACUBITRIL/VALSARTAN) PO SCH (11:15)
[2023-06-24 12:26] LABS: INR 2.74
[2023-06-24] MEDS: LORazepam 1 MG TAB PO PRN (13:19)
[2023-06-24] MEDS: ATORVASTATIN 20 MG TAB PO SCH (21:14)
[2023-06-25] VITALS (28 sets, daily range): BP systolic 114–132; BP diastolic 53–66; TEMP 96.2–97.8; O2SAT 88–99
[2023-06-25 06:07] LABS: BASO % 0.1 % (0.0-1.0); HEMATOCRIT 26.5 % (36.0-47.0); HEMOGLOBIN 8.3 g/dl (12.0-15.5); LYMPH # 0.5 10^3/uL (1.5-5.0); MEAN CORPUSCULAR HGB CONC 31.3 g/dl (32.0-36.5); MEAN CORPUSCULAR VOLUME 98.9 fl (80.0-96.0); MONO # 0.5 10^3/uL (0.0-0.8); NEUTROPHILS # 13.6 10^3/uL (1.5-8.5); NEUTROPHILS % 90.5 % (36.0-66.0); PLATELET COUNT, AUTOMATED 212 10^3/uL (150-450); RED BLOOD COUNT 2.68 10^6/uL (4.00-5.40)
[2023-06-25 06:19] LABS: INR 3.62; PROTHROMBIN TIME 34.7 SECONDS (12.5-14.5)
[2023-06-25 06:32] LABS: CALCIUM LEVEL 9.2 MG/DL (8.3-10.6); CREATININE FOR GFR 1.27 MG/DL (0.55-1.30); GLOMERULAR FILTRATION RATE 43.7 (>39); POTASSIUM SERUM 3.8 MMOL/L (3.5-5.1)
[2023-06-25] MEDS ORDERED: WARFARIN SOD 2.5MG TAB PO SCH (17:00)
[2023-06-25] MEDS ORDERED: WARFARIN SOD 2MG TAB PO SCH (17:00)
[2023-06-25] MEDS: FUROSEMIDE 20MG/2ML VIAL IV SCH (18:43)
[2023-06-26] VITALS (23 sets, daily range): BP systolic 115–129; BP diastolic 52–62; TEMP 96.9–97.6; O2SAT 82–100
[2023-06-26 05:18] LABS: BASO % 0.1 % (0.0-1.0); HEMOGLOBIN 7.7 g/dl (12.0-15.5); LYMPH # 0.4 10^3/uL (1.5-5.0); LYMPH % 3.2 % (24.0-44.0); MEAN CORPUSCULAR HEMOGLOBIN 31.7 pg (27.0-33.0); MEAN CORPUSCULAR HGB CONC 32.1 g/dl (32.0-36.5); MEAN CORPUSCULAR VOLUME 98.8 fl (80.0-96.0); MONO # 0.4 10^3/uL (0.0-0.8); MONO % 3.8 % (2.0-8.0); NEUTROPHILS # 10.3 10^3/uL (1.5-8.5); PLATELET COUNT, AUTOMATED 179 10^3/uL (150-450); RED BLOOD COUNT 2.43 10^6/uL (4.00-5.40); WHITE BLOOD COUNT 11.6 10^3/uL (4.0-10.0)
[2023-06-26 05:30] LABS: INR 4.53; PROTHROMBIN TIME 41.3 SECONDS (12.5-14.5)
[2023-06-26 05:41] LABS: CALCIUM LEVEL 8.1 MG/DL (8.3-10.6); CREATININE FOR GFR 1.35 MG/DL (0.55-1.30); GLOMERULAR FILTRATION RATE 40.7 (>39); POTASSIUM SERUM 3.6 MMOL/L (3.5-5.1)
[2023-06-26] MEDS: methylPREDNISolone 125MG 2ML VIAL IV ONE (15:15)
[2023-06-26] MEDS: BACTRIM 160MG/800MG DS TAB PO SCH (15:15)
[2023-06-26] MEDS: methylPREDNISolone 40MG 1ML VIAL IV SCH (18:34)
[2023-06-27] VITALS (24 sets, daily range): BP systolic 108–144; BP diastolic 54–66; TEMP 97–97.8; O2SAT 87–100
[2023-06-27 05:34] LABS: BASO % 0.2 % (0.0-1.0); HEMATOCRIT 24.8 % (36.0-47.0); HEMOGLOBIN 7.9 g/dl (12.0-15.5); LYMPH # 0.3 10^3/uL (1.5-5.0); LYMPH % 2.7 % (24.0-44.0); MEAN CORPUSCULAR HEMOGLOBIN 30.9 pg (27.0-33.0); MEAN CORPUSCULAR HGB CONC 31.9 g/dl (32.0-36.5); MEAN CORPUSCULAR VOLUME 96.9 fl (80.0-96.0); MONO # 0.2 10^3/uL (0.0-0.8); MONO % 1.9 % (2.0-8.0); NEUTROPHILS # 10.2 10^3/uL (1.5-8.5); NEUTROPHILS % 90.9 % (36.0-66.0); PLATELET COUNT, AUTOMATED 184 10^3/uL (150-450); RED BLOOD COUNT 2.56 10^6/uL (4.00-5.40); WHITE BLOOD COUNT 11.2 10^3/uL (4.0-10.0)
[2023-06-27 05:54] LABS: INR 3.96; PROTHROMBIN TIME 37.2 SECONDS (12.5-14.5)
[2023-06-27 06:15] LABS: CREATININE FOR GFR 1.33 MG/DL (0.55-1.30); GLOMERULAR FILTRATION RATE 41.4 (>39); POTASSIUM SERUM 3.9 MMOL/L (3.5-5.1)
[2023-06-28] VITALS (23 sets, daily range): BP systolic 109–143; BP diastolic 47–75; TEMP 97.1–97.7; O2SAT 77–99
[2023-06-28 05:48] LABS: HEMATOCRIT 26.6 % (36.0-47.0); HEMOGLOBIN 8.7 g/dl (12.0-15.5); MEAN CORPUSCULAR HEMOGLOBIN 31.6 pg (27.0-33.0); MEAN CORPUSCULAR HGB CONC 32.7 g/dl (32.0-36.5); MEAN CORPUSCULAR VOLUME 96.7 fl (80.0-96.0); PLATELET COUNT, AUTOMATED 222 10^3/uL (150-450); RED BLOOD COUNT 2.75 10^6/uL (4.00-5.40); WHITE BLOOD COUNT 12.9 10^3/uL (4.0-10.0)
[2023-06-28 05:59] LABS: INR 3.34; PROTHROMBIN TIME 32.6 SECONDS (12.5-14.5)
[2023-06-28 06:18] LABS: CALCIUM LEVEL 8.5 MG/DL (8.3-10.6); CREATININE FOR GFR 1.26 MG/DL (0.55-1.30); GLOMERULAR FILTRATION RATE 44.1 (>39); POTASSIUM SERUM 4.2 MMOL/L (3.5-5.1)
[2023-06-28 06:35] LABS: ATYPICAL LYMPH 1 % (0-5); LYMPHOCYTES 4 % (16-44); METAMYELOCYTES 2 % (0-0); MONOCYTES 2 % (0-5); MYELOCYTES 2 % (0-0); NEUTROPHILS 88 % (28-66); PLATELET ESTIMATE NORMAL (NORMAL)
[2023-06-28 06:36] LABS: ANISOCYTOSIS 2+
[2023-06-28 06:37] LABS: OVALOCYTES 1+
[2023-06-28] MEDS: WARFARIN SOD 4MG TAB PO SCH (18:50)
[2023-06-29 06:00] VITALS: BP 115/73; TEMP 98.1; O2SAT 96
[2023-06-29 06:45] LABS: BASO % 0.1 % (0.0-1.0); HEMOGLOBIN 8.6 g/dl (12.0-15.5); LYMPH # 0.3 10^3/uL (1.5-5.0); LYMPH % 2.3 % (24.0-44.0); MEAN CORPUSCULAR HEMOGLOBIN 31.4 pg (27.0-33.0); MEAN CORPUSCULAR HGB CONC 31.9 g/dl (32.0-36.5); MEAN CORPUSCULAR VOLUME 98.5 fl (80.0-96.0); MONO # 0.4 10^3/uL (0.0-0.8); MONO % 2.9 % (2.0-8.0); NEUTROPHILS # 11.6 10^3/uL (1.5-8.5); NEUTROPHILS % 88.7 % (36.0-66.0); PLATELET COUNT, AUTOMATED 213 10^3/uL (150-450); RED BLOOD COUNT 2.74 10^6/uL (4.00-5.40); WHITE BLOOD COUNT 13.1 10^3/uL (4.0-10.0)
[2023-06-29 07:01] LABS: INR 2.81; PROTHROMBIN TIME 28.6 SECONDS (12.5-14.5)
[2023-06-29 07:10] LABS: CALCIUM LEVEL 8.6 MG/DL (8.3-10.6); CREATININE FOR GFR 1.2 MG/DL (0.55-1.30); GLOMERULAR FILTRATION RATE 46.6 (>39); POTASSIUM SERUM 4.1 MMOL/L (3.5-5.1)
[2023-06-29 09:27] VITALS: BP 116/76
[2023-06-29 14:00] VITALS: BP 123/62; TEMP 97.5; O2SAT 95
[2023-06-29 22:00] VITALS: BP 123/63; TEMP 97.3; O2SAT 93
[2023-06-30] VITALS (7 sets, daily range): BP systolic 115–148; BP diastolic 56–70; TEMP 97.3–97.9; O2SAT 80–97
[2023-06-30 06:34] LABS: INR 3.05; PROTHROMBIN TIME 30.4 SECONDS (12.5-14.5)
[2023-06-30] MEDS: methylPREDNISolone 125MG 2ML VIAL IV SCH (12:32)
[2023-07-01] VITALS (13 sets, daily range): BP systolic 123–146; BP diastolic 56–66; TEMP 97.3–97.6; O2SAT 84–96
[2023-07-01 06:13] LABS: INR 2.83; PROTHROMBIN TIME 28.7 SECONDS (12.5-14.5)
[2023-07-02 05:44] VITALS: O2SAT 79
[2023-07-02 05:45] VITALS: BP 134/66; TEMP 97.5; O2SAT 92
[2023-07-02 06:08] LABS: INR 3.27; PROTHROMBIN TIME 32.1 SECONDS (12.5-14.5)
[2023-07-02 14:00] VITALS: BP 134/62; TEMP 97.9; O2SAT 95
[2023-07-02 14:12] VITALS: O2SAT 98
[2023-07-02 21:00] VITALS: O2SAT 98
[2023-07-02 21:10] VITALS: BP 117/58; TEMP 97.2; O2SAT 99
[2023-07-03 05:40] VITALS: BP 118/55; TEMP 97.2; O2SAT 100
[2023-07-03 06:51] LABS: INR 3.87; PROTHROMBIN TIME 36.5 SECONDS (12.5-14.5)
[2023-07-03] MEDS: predniSONE 50 MG TAB PO SCH (08:50)
[2023-07-03 09:52] VITALS: O2SAT 97
[2023-07-03 14:00] VITALS: BP 121/55; TEMP 97.3; O2SAT 97
[2023-07-03 20:38] VITALS: BP 119/54; TEMP 97.3; O2SAT 98
[2023-07-03 21:30] VITALS: BP 121/55; TEMP 97.2; O2SAT 92
[2023-07-04] VITALS (8 sets, daily range): BP systolic 113–121; BP diastolic 53–57; TEMP 97–97.9; O2SAT 84–97
[2023-07-04 06:50] LABS: INR 4.03; PROTHROMBIN TIME 37.7 SECONDS (12.5-14.5)
[2023-07-05 06:00] VITALS: BP 114/57; TEMP 97.7; O2SAT 97
[2023-07-05 06:58] LABS: INR 3.3; PROTHROMBIN TIME 32.3 SECONDS (12.5-14.5)
[2023-07-05 08:05] VITALS: BP 128/51
[2023-07-05] MEDS ORDERED: JANT3TAB PO (09:44)
[2023-07-05] MEDS ORDERED: BACTDSTA PO (09:44)
[2023-07-05] MEDS ORDERED: JANT4TAB PO (09:44)
[2023-07-05] MEDS ORDERED: PRED10TA2 PO (09:44)
[2023-07-05] MEDS ORDERED: XANA0.5T PO (10:11)
[2023-07-05] MEDS ORDERED: WARFARIN SOD 3MG TAB PO SCH (17:00)
[2023-07-06] MEDS ORDERED: WARFARIN SOD 4MG TAB PO SCH (17:00)
== END 2023-07-05 12:08 | disposition home or self-care (01) | DRG 871 ==
LOC: M ED 05:15 → EDBD 05:15 → M ED INP 10:19 → M PCU 11:48 → M MSPAV 06-28 15:50
PROVIDERS: ADMIT Internal Medicine Nephrology; ATTEND Student in an Organized Health Care Education/Training Program
PROC: B246ZZZ Ultrasonography of Right and Left Heart (ICD-10-PCS; principal; 2023-06-22)
DX: A41.9 Sepsis, unspecified organism (principal); J15.9 Unspecified bacterial pneumonia; J96.21 Acute and chronic respiratory failure with hypoxia; C34.12 Malignant neoplasm of upper lobe, left bronchus or lung; I50.32 Chronic diastolic (congestive) heart failure; I13.0 Hypertensive heart and chronic kidney disease with heart failure and stage 1 through stage 4 chronic kidney disease, or unspecified chronic kidney disease; J84.9 Interstitial pulmonary disease, unspecified; I24.89 Other forms of acute ischemic heart disease; I48.0 Paroxysmal atrial fibrillation; L89.159 Pressure ulcer of sacral region, unspecified stage; B97.29 Other coronavirus as the cause of diseases classified elsewhere; I49.5 Sick sinus syndrome; D69.6 Thrombocytopenia, unspecified; E78.5 Hyperlipidemia, unspecified; N18.9 Chronic kidney disease, unspecified; D64.81 Anemia due to antineoplastic chemotherapy; Z83.3 Family history of diabetes mellitus; Z87.891 Personal history of nicotine dependence; Z95.2 Presence of prosthetic heart valve; Z95.0 Presence of cardiac pacemaker; Z79.890 Hormone replacement therapy; Z79.899 Other long term (current) drug therapy; Z20.822 Contact with and (suspected) exposure to COVID-19; Z99.81 Dependence on supplemental oxygen

== ENCOUNTER → 2023-07-31 | Outpatient (CLI) | payer MEDICARE, OTHER ==
[~2023-07-31] MED LIST changes: +BACTDSTA PO; +FLUT12HF3 PO; +ISOVUE-370 76% 100ML VIAL As Ordered ONE; +JANT3TAB PO; +JANT4TAB PO; +PANT40TA29 PO; +XANA0.5T PO
== END ==
LOC: M RAD 10:52
PROVIDERS: ATTEND Nurse Practitioner
DX: C34.90 Malignant neoplasm of unspecified part of unspecified bronchus or lung (principal); J84.9 Interstitial pulmonary disease, unspecified
CPT/HCPCS: 71260; Q9967

== ENCOUNTER → 2023-10-17 | Outpatient (CLI) | payer MEDICARE, OTHER ==
[~2023-10-17] MED LIST changes: +FEXO-157 PO; -ISOVUE-370 76% 100ML VIAL As Ordered ONE; +LEVO25TA5 PO
== END ==
LOC: M PLAIMG 08:52
PROVIDERS: ATTEND Internal Medicine Pulmonary Disease
DX: J84.9 Interstitial pulmonary disease, unspecified (principal); J91.8 Pleural effusion in other conditions classified elsewhere

== ENCOUNTER → 2023-11-04 | Outpatient (CLI) | payer MEDICARE, OTHER ==
[2023-11-04 13:48] LABS: BLOOD UREA NITROGEN 25 MG/DL (9-23); CALCIUM LEVEL 9.1 MG/DL (8.3-10.6); CARBON DIOXIDE LEVEL 34 MMOL/L (20-31); CHLORIDE LEVEL 101 MMOL/L (98-107); CREATININE FOR GFR 0.96 MG/DL (0.55-1.30); GLOMERULAR FILTRATION RATE > 60.0 (>39); GLUCOSE, FASTING 136 MG/DL (74-106); MAGNESIUM LEVEL 1.4 MG/DL (1.8-2.4); POTASSIUM SERUM 4.7 MMOL/L (3.5-5.1); SODIUM LEVEL 140 MMOL/L (136-145)
== END ==
LOC: M PLALAB 10:33
PROVIDERS: ATTEND Internal Medicine Cardiovascular Disease
DX: I50.32 Chronic diastolic (congestive) heart failure (principal); I49.5 Sick sinus syndrome; Z95.0 Presence of cardiac pacemaker

== ENCOUNTER → 2023-11-04 | Outpatient (CLI) | payer MEDICARE, OTHER ==
[~2023-11-04] MED LIST changes: +AMOX500T2 PO; +PRED20TA PO
== END ==
LOC: M PLAIMG 10:31
PROVIDERS: ATTEND Internal Medicine Pulmonary Disease
DX: I50.32 Chronic diastolic (congestive) heart failure (principal); J90 Pleural effusion, not elsewhere classified; I49.5 Sick sinus syndrome; Z95.0 Presence of cardiac pacemaker

== ENCOUNTER → 2023-11-28 | Outpatient (CLI) | payer MEDICARE, OTHER ==
[~2023-11-28] MED LIST changes: +[UNRECOGNIZED DRUG - CODE] PO; -[UNRECOGNIZED DRUG - CODE] PO
== END ==
LOC: M RAD 10:11
PROVIDERS: ATTEND Internal Medicine Pulmonary Disease
DX: J84.9 Interstitial pulmonary disease, unspecified (principal); J90 Pleural effusion, not elsewhere classified

== ENCOUNTER → 2023-12-16 | Outpatient (CLI) | payer MEDICARE, OTHER ==
[~2023-12-16] MED LIST changes: +TRAM50TA2 PO
== END ==
LOC: M RAD 10:16
PROVIDERS: ATTEND Internal Medicine Pulmonary Disease
DX: J84.9 Interstitial pulmonary disease, unspecified (principal)

== ENCOUNTER 2024-01-06 07:06 | Inpatient (IN) | payer MEDICARE, OTHER ==
[~2024-01-06] VITALS: Ht 154.9 cm; Wt 73.5 kg
[~2024-01-06 07:06] MED LIST changes: -FEXO-157 PO; +FEXO-63 PO; +HYDR-3713 PO
[2024-01-06] MEDS: ONDANSETRON 4MG 2ML VIAL IV ONE (08:21)
[2024-01-06] MEDS: MORPHINE 2 MG/ML 1ML VIAL IV PRN ×2 (08:21→16:01)
[2024-01-06 08:24] LABS: VENOUS BASE EXCESS 4.9 (-2.0-2.0); VENOUS HCO3 30.8 MMOL/L (23.0-27.0); VENOUS O2 SATURATION 82.3 % (60.0-80.0); VENOUS PARTIAL PRESSURE CO2 50.7 mmHg (38.0-50.0); VENOUS PARTIAL PRESSURE O2 48.6 mmHg (30.0-50.0); VENOUS PH 7.401 UNITS (7.330-7.430); VENOUS STANDARD HCO3 28.5 MMOL/L; VENOUS TOTAL CO2 32.3 MMOL/L (24.0-28.0)
[2024-01-06] MEDS: IPRATROPIUM 0.5MG/ALBUTEROL 2.5MG INH SOL UD 3ML (DUONEB) NEB ONE (08:28)
[2024-01-06 08:32] LABS: BASO % 0.2 % (0.0-1.0); EOS % 0.1 % (0.0-3.0); HEMATOCRIT 40.5 % (36.0-47.0); HEMOGLOBIN 12.4 g/dl (12.0-15.5); LYMPH % 7.1 % (24.0-44.0); MEAN CORPUSCULAR HEMOGLOBIN 30.4 pg (27.0-33.0); MEAN CORPUSCULAR HGB CONC 30.6 g/dl (32.0-36.5); MEAN CORPUSCULAR VOLUME 99.3 fl (80.0-96.0); MONO # 0.8 10^3/uL (0.0-0.8); MONO % 5.8 % (2.0-8.0); NEUTROPHILS % 85.2 % (36.0-66.0); PLATELET COUNT, AUTOMATED 220 10^3/uL (150-450); RED BLOOD COUNT 4.08 10^6/uL (4.00-5.40); WHITE BLOOD COUNT 14.1 10^3/uL (4.0-10.0)
[2024-01-06 08:52] LABS: INR 4.63
[2024-01-06 09:02] LABS: THYROID STIMULATING HORMONE 3.03 uIU/ML (0.55-4.78)
[2024-01-06 09:08] LABS: ALBUMIN 3.2 G/DL (3.2-5.2); BILIRUBIN,DIRECT 0.1 MG/DL (<0.4); BILIRUBIN,TOTAL 0.4 MG/DL (0.3-1.2); CALCIUM LEVEL 9.4 MG/DL (8.3-10.6); CK-MB VALUE MASS 2.6 NG/ML (<3.6); CREATININE FOR GFR 1.03 MG/DL (0.55-1.30); GLOMERULAR FILTRATION RATE 55.6 (>39); MB/CK RELATIVE INDEX 4.9 (< OR =4); POTASSIUM SERUM 5.6 MMOL/L (3.5-5.1); TOTAL PROTEIN 6.8 G/DL (5.7-8.2)
[2024-01-06] MEDS ORDERED: ISOVUE-370 76% 100ML VIAL As Ordered ONE (09:18)
[2024-01-06] MEDS ORDERED: SODIUM CHLORIDE 0.9% INJ 10 ML SYR IV PRN (09:25)
[2024-01-06] MEDS: NS 1,000 ML IV SCH (10:23)
[2024-01-06] MEDS: AUGMENTIN 875 MG TAB PO ONE (11:30)
[2024-01-06] MEDS: PIPERACILLIN/TAZOBACTAM SOD 4.5 GM in D5W MINI-BAG PLUS 50 ML IV SCH (12:19)
[2024-01-06] MEDS ORDERED: BISACODYL 5MG TAB PO PRN (12:40)
[2024-01-06] MEDS ORDERED: SENOKOT S TAB PO PRN (12:40)
[2024-01-06] MEDS ORDERED: NALOXONE INJ 0.4MG/1ML VIAL IV PRN (12:40)
[2024-01-06] MEDS ORDERED: XANA0.5T PO (12:50)
[2024-01-06] MEDS ORDERED: WARF-23 PO (12:50)
[2024-01-06] MEDS ORDERED: ENTR1TAB4 PO (12:50)
[2024-01-06] MEDS ORDERED: ALBU2.5V10 INH ×2 (12:50)
[2024-01-06] MEDS ORDERED: HOME MED LIST COMPLETE! XX SCH (12:50)
[2024-01-06] MEDS ORDERED: PILL CUTTER 1 EACH XX ONE (12:57)
[2024-01-06] MEDS: MORPHINE 30 MG TAB **MSIR PO ONE (13:01)
[2024-01-06 14:00] VITALS: BP 120/54; O2SAT 95
[2024-01-06] MEDS: ALBUTEROL SULFATE 2.5MG/0.5ML INH NEB SOLN INH SCH (14:00)
[2024-01-06] MEDS ORDERED: ADVAIR HFA 230/21MCG INHALER INH PRN (14:30)
[2024-01-06 15:57] VITALS: BP 100/50; TEMP 97.4; O2SAT 98
[2024-01-06] MEDS: MAGNESIUM OXIDE 400MG TAB (MAG-OX) PO SCH (16:17)
[2024-01-06] MEDS: FOLIC ACID 1MG TAB PO SCH (16:17)
[2024-01-06] MEDS: MIDODRINE 5 MG TAB PO ONE (16:24)
[2024-01-06] MEDS: NS 500 ML IV ONE (16:24)
[2024-01-06] MEDS: LIDOCAINE 5% (LIDODERM) PATCH TD SCH (16:52)
[2024-01-06 18:08] VITALS: BP 112/54
[2024-01-06] MEDS: ANALGESIC BALM CRM 3OZ TOP SCH (18:08)
[2024-01-06 19:11] VITALS: BP 133/60; TEMP 97.1; O2SAT 100
[2024-01-06] MEDS: METOPROLOL SUCC (TopROL XL) 50MG **XL** TAB PO SCH (20:32)
[2024-01-06] MEDS: ATORVASTATIN 20 MG TAB PO SCH (20:33)
[2024-01-06] MEDS: ENTRESTO 97-103MG TABLET (SACUBITRIL/VALSARTAN) PO SCH (20:35)
[2024-01-07] VITALS (10 sets, daily range): BP systolic 112–140; BP diastolic 50–62; TEMP 96.8–98.5; O2SAT 84–97
[2024-01-07 06:11] LABS: PROTHROMBIN TIME 54.6 SECONDS (12.5-14.5)
[2024-01-07 06:16] LABS: CALCIUM LEVEL 8.1 MG/DL (8.3-10.6); CREATININE FOR GFR 1.05 MG/DL (0.55-1.30); GLOMERULAR FILTRATION RATE 54.4 (>39); POTASSIUM SERUM 3.7 MMOL/L (3.5-5.1)
[2024-01-07 06:25] LABS: INR 6.53
[2024-01-07 07:26] LABS: BASO % 0.2 % (0.0-1.0); EOS # 0.1 10^3/uL (0.0-0.5); HEMATOCRIT 32.2 % (36.0-47.0); LYMPH # 0.7 10^3/uL (1.5-5.0); LYMPH % 8.1 % (24.0-44.0); MEAN CORPUSCULAR HEMOGLOBIN 30.7 pg (27.0-33.0); MEAN CORPUSCULAR HGB CONC 29.8 g/dl (32.0-36.5); MEAN CORPUSCULAR VOLUME 102.9 fl (80.0-96.0); MONO # 0.6 10^3/uL (0.0-0.8); MONO % 6.8 % (2.0-8.0); NEUTROPHILS # 7.4 10^3/uL (1.5-8.5); NEUTROPHILS % 82.3 % (36.0-66.0); PLATELET COUNT, AUTOMATED 165 10^3/uL (150-450); RED BLOOD COUNT 3.13 10^6/uL (4.00-5.40)
[2024-01-07 07:27] LABS: HEMOGLOBIN 9.6 g/dl (12.0-15.5); PROTHROMBIN TIME 55.5 SECONDS (12.5-14.5)
[2024-01-07 07:34] LABS: INR 6.66
[2024-01-07] MEDS: FEXOFENADINE 60MG TAB PO SCH (08:21)
[2024-01-07] MEDS: MORPHINE 30 MG TAB **MSIR PO PRN (16:18)
[2024-01-07] MEDS: ALPRAZolam 0.5 MG TAB PO PRN (23:18)
[2024-01-08 03:16] VITALS: BP 104/48; TEMP 97; O2SAT 97
[2024-01-08 04:57] LABS: BASO % 0.2 % (0.0-1.0); EOS # 0.1 10^3/uL (0.0-0.5); EOS % 0.6 % (0.0-3.0); HEMATOCRIT 31.4 % (36.0-47.0); HEMOGLOBIN 9.3 g/dl (12.0-15.5); LYMPH # 0.6 10^3/uL (1.5-5.0); LYMPH % 6.8 % (24.0-44.0); MEAN CORPUSCULAR HEMOGLOBIN 30.2 pg (27.0-33.0); MEAN CORPUSCULAR HGB CONC 29.6 g/dl (32.0-36.5); MEAN CORPUSCULAR VOLUME 101.9 fl (80.0-96.0); MONO # 0.6 10^3/uL (0.0-0.8); NEUTROPHILS # 6.7 10^3/uL (1.5-8.5); NEUTROPHILS % 81.9 % (36.0-66.0); PLATELET COUNT, AUTOMATED 151 10^3/uL (150-450); RED BLOOD COUNT 3.08 10^6/uL (4.00-5.40); WHITE BLOOD COUNT 8.2 10^3/uL (4.0-10.0)
[2024-01-08 05:09] LABS: PROTHROMBIN TIME 60.4 SECONDS (12.5-14.5)
[2024-01-08 05:29] LABS: CALCIUM LEVEL 7.9 MG/DL (8.3-10.6); CREATININE FOR GFR 1.12 MG/DL (0.55-1.30); GLOMERULAR FILTRATION RATE 50.5 (>39); POTASSIUM SERUM 3.6 MMOL/L (3.5-5.1)
[2024-01-08 05:33] LABS: INR 7.44
[2024-01-08 08:03] VITALS: BP 146/52; TEMP 96.5; O2SAT 96
[2024-01-08 11:51] VITALS: BP 110/62; TEMP 96.6; O2SAT 94
[2024-01-08] MEDS ORDERED: ONDANSETRON 4MG 2ML VIAL IV PRN (13:45)
[2024-01-08] MEDS ORDERED: HYOSCYAMINE SULFATE 0.125 MG SUBL TABLET PO PRN (13:45)
[2024-01-08] MEDS: MORPHINE 2 MG/ML 1ML VIAL IV PRN (13:59)
[2024-01-08] MEDS: LORazepam 2 MG/ML 1ML VIAL IV PRN (17:40)
[2024-01-09] MEDS ORDERED: ALBUTEROL SULFATE 2.5MG/0.5ML INH NEB SOLN INH PRN (11:10)
[2024-01-11] MEDS: SCOPOLAMINE 1MG TRANSDERMAL PATCH TOP SCH (11:31)
== END 2024-01-11 12:15 | disposition expired | DRG 391 ==
LOC: M ED 07:06 → M ED INP 11:20 → M PCU 13:39 → M MS5PR 01-10 21:35
PROVIDERS: ADMIT General Practice; ATTEND Family Medicine
DX: K57.32 Diverticulitis of large intestine without perforation or abscess without bleeding (principal); G92.8 Other toxic encephalopathy; J96.21 Acute and chronic respiratory failure with hypoxia; E43 Unspecified severe protein-calorie malnutrition; C34.12 Malignant neoplasm of upper lobe, left bronchus or lung; I50.32 Chronic diastolic (congestive) heart failure; I13.0 Hypertensive heart and chronic kidney disease with heart failure and stage 1 through stage 4 chronic kidney disease, or unspecified chronic kidney disease; J90 Pleural effusion, not elsewhere classified; J84.9 Interstitial pulmonary disease, unspecified; I48.0 Paroxysmal atrial fibrillation; J44.9 Chronic obstructive pulmonary disease, unspecified; I49.5 Sick sinus syndrome; E78.5 Hyperlipidemia, unspecified; N18.30 Chronic kidney disease, stage 3 unspecified; E87.5 Hyperkalemia; Z51.5 Encounter for palliative care; D64.9 Anemia, unspecified; Z66 Do not resuscitate; Z87.891 Personal history of nicotine dependence; Z79.69 Long term (current) use of other immunomodulators and immunosuppressants; Z93.3 Colostomy status; Z79.52 Long term (current) use of systemic steroids; Z79.899 Other long term (current) drug therapy; Z95.0 Presence of cardiac pacemaker; Z95.2 Presence of prosthetic heart valve; Z79.01 Long term (current) use of anticoagulants; Z88.5 Allergy status to narcotic agent; Z88.8 Allergy status to other drugs, medicaments and biological substances; Z99.81 Dependence on supplemental oxygen